=== PATIENT | male | born 1960 | race African-American/Black ===

== ENCOUNTER 2020-07-01 15:39 | Inpatient (IN) | payer MEDICARE ==
[~2020-07-01] VITALS: Ht 182.9 cm; Wt 89.8 kg
[2020-07-01 16:44] LABS: BASOPHILS % 0.3 % (0.0-2.0); EOSINOPHILS % 0.6 % (0.0-5.0); HEMATOCRIT. 35.3 % (42.0-52.0); LYMPHOCYTES % 20.3 % (20.0-50.0); MEAN CORPUSCULAR HEMOGLOBIN 27.5 pg (28.0-32.0); MEAN CORPUSCULAR VOLUME 80.8 fL (80.0-94.0); MEAN PLATELET VOLUME 8.3 fl (7.4-10.4); MONOCYTES % 7.7 % (2.0-8.0); NEUTROPHILS % 71.1 % (40.0-76.0); PLATELET 486 x1000/uL (130-400); RED BLOOD CELL COUNT 4.37 mill/uL (4.7-6.1); RED CELL DISTRIBUTION WIDTH 13.9 % (11.6-14.6)
[2020-07-01] MEDS ORDERED: SODIUM CHLORIDE 0.9% 1,000 ML IV ONE ×2 (16:45→18:30)
[2020-07-01 16:48] LABS: CHLORIDE 99 mEq/L (98-107)
[2020-07-01 16:52] LABS: INR 1.2; PROTHROMBIN TIME 12.8 sec (9.6-11.0)
[2020-07-01] MEDS ORDERED: ONDANSETRON HCL 4MG/2ML INJ IV STA (18:17)
[2020-07-01] MEDS ORDERED: MORPHINE SULFATE 4 MG/ML CPJ (NOT FOR IM USE) IV STA (18:17)
[2020-07-01 20:23] LABS: CLARITY URINE TURBID (CLEAR); COLOR URINE DK YELLOW (YELLOW); KETONES URINE NEGATIVE (NEGATIVE); LEUKOCYTE ESTERASE URINE 3+ (NEGATIVE); NITRITE URINE NEGATIVE (NEGATIVE); OCCULT BLOOD URINE 3+ (NEGATIVE); PH URINE 8.5 (4.5-8.0); PROTEIN URINE 2+ (NEGATIVE); SPECIFIC GRAVITY URINE 1.009 (1.005-1.030)
[2020-07-01 21:25] VITALS: BP 108/68
[2020-07-01] MEDS ORDERED: ACETAMINOPHEN 650MG/20.3ML UDC GT PRN (22:00)
[2020-07-01] MEDS ORDERED: CEFTRIAXONE 1 G PREMIX 50 ML IV ONE (22:00)
[2020-07-01] MEDS ORDERED: CLONIDINE 0.1MG TABLET PO PRN (22:00)
[2020-07-01] MEDS ORDERED: NA PHOS,M-B/NA PHOS,DI-BA ENEMA 118ML PR PRN (22:00)
[2020-07-01] MEDS ORDERED: ONDANSETRON HCL 4MG/2ML INJ IV PRN (22:00)
[2020-07-01] MEDS: SODIUM CHLORIDE 0.9% 1,000 ML IV SCH (22:00)
[2020-07-01] MEDS ORDERED: ACETAMINOPHEN 650MG SUPP PR PRN ×2 (22:00)
[2020-07-01] MEDS ORDERED: MAGNESIUM/ALUMINUM HYDROXIDE/SIMETHICONE 30ML UDC PO PRN (22:00)
[2020-07-01] MEDS ORDERED: GUAIFENESIN 200MG/10ML SUGAR FREE UDC PO PRN (22:00)
[2020-07-01] MEDS ORDERED: DOCUSATE SODIUM 100MG CAPSULE PO PRN (22:00)
[2020-07-01] MEDS ORDERED: HYDROCODONE/ACETAMINOPHEN 5/325MG TABLET PO PRN (22:00)
[2020-07-01] MEDS: PANTOPRAZOLE SODIUM 40 MG/VIAL IV SCH (23:39)
[2020-07-01] MEDS: CEFTRIAXONE 1,000 MG in DEXTROSE 5% WATER 50 ML IV SCH (23:39)
[2020-07-01] MEDS: ENOXAPARIN 40MG/0.4ML SYR SUBCUT SCH (23:45)
[2020-07-02] VITALS: BP 102/69
[2020-07-02] MEDS: ONDANSETRON HCL 4MG/2ML INJ IV PRN (00:17)
[2020-07-02] MEDS: METOCLOPRAMIDE HCL 10MG/2ML VIAL IV SCH ×2 (00:17→07:33)
[2020-07-02 04:00] VITALS: BP 109/61
[2020-07-02 05:49] LABS: CHLORIDE 106 mEq/L (98-107)
[2020-07-02 05:59] LABS: HDL CHOLESTEROL 18 mg/dL (40-59)
[2020-07-02 06:00] LABS: LDL CHOLESTEROL 71 mg/dL (5-100)
[2020-07-02] MEDS: SODIUM CHLORIDE 0.9% 1,000 ML IV SCH ×2 (06:00→14:27)
[2020-07-02 06:25] LABS: HEMOGLOBIN. 10.6 g/dL (14.0-18.0); MEAN CORPUSCULAR HEMOGLOBIN 27.8 pg (28.0-32.0); MEAN CORPUSCULAR VOLUME 83.7 fL (80.0-94.0); MEAN PLATELET VOLUME 8.4 fl (7.4-10.4); PLATELET 388 x1000/uL (130-400); RED BLOOD CELL COUNT 3.82 mill/uL (4.7-6.1); RED CELL DISTRIBUTION WIDTH 13.9 % (11.6-14.6)
[2020-07-02 08:00] VITALS: BP 102/73
[2020-07-02] MEDS: PANTOPRAZOLE SODIUM 40 MG/VIAL IV SCH (09:37)
[2020-07-02 10:30] LABS: PLATELET ESTIMATE NORMAL
[2020-07-02 12:00] VITALS: BP 105/74
[2020-07-02 16:00] VITALS: BP 115/72
[2020-07-02 20:00] VITALS: BP 95/68
[2020-07-02] MEDS: DIPHENOXYLATE/ATROPINE 2.5/0.025MG TABLET PO PRN (21:37)
[2020-07-02] MEDS: ENOXAPARIN 40MG/0.4ML SYR SUBCUT SCH (22:32)
[2020-07-02] MEDS: CEFTRIAXONE 1,000 MG in DEXTROSE 5% WATER 50 ML IV SCH (22:34)
[2020-07-03] VITALS: BP 103/62
[2020-07-03] MEDS: DIPHENOXYLATE/ATROPINE 2.5/0.025MG TABLET PO PRN ×2 (02:17→22:27)
[2020-07-03 04:00] VITALS: BP 106/65
[2020-07-03] MEDS ORDERED: POTASSIUM CHLORIDE 20MEQ TABLET SR PO SCH (06:00)
[2020-07-03] MEDS: SODIUM CHLORIDE 0.9% 1,000 ML IV SCH ×2 (06:15→14:00)
[2020-07-03 08:00] VITALS: BP 103/78
[2020-07-03] MEDS: PANTOPRAZOLE SODIUM 40 MG/VIAL IV SCH (09:00)
[2020-07-03 12:00] VITALS: BP 113/74
[2020-07-03 15:16] LABS: BASOPHILS % 0.5 % (0.0-2.0); EOSINOPHILS % 0.8 % (0.0-5.0); HEMATOCRIT. 31.7 % (42.0-52.0); HEMOGLOBIN. 10.4 g/dL (14.0-18.0); LYMPHOCYTES % 27.4 % (20.0-50.0); MEAN CORPUSCULAR HEMOGLOBIN 27.4 pg (28.0-32.0); MEAN CORPUSCULAR VOLUME 83.6 fL (80.0-94.0); MEAN PLATELET VOLUME 8.2 fl (7.4-10.4); MONOCYTES % 8.3 % (2.0-8.0); PLATELET 462 x1000/uL (130-400); RED BLOOD CELL COUNT 3.79 mill/uL (4.7-6.1); RED CELL DISTRIBUTION WIDTH 14.3 % (11.6-14.6)
[2020-07-03 15:23] LABS: CHLORIDE 107 mEq/L (98-107)
[2020-07-03 15:30] LABS: PHOSPHORUS 2.9 mg/dL (2.5-4.9)
[2020-07-03 16:00] VITALS: BP 107/76
[2020-07-03] MEDS ORDERED: DIPHENOXYLATE/ATROPINE 2.5/0.025MG TABLET PO NR (16:30)
[2020-07-03] MEDS: SODIUM BICARBONATE 50 MEQ in DEXTROSE 5% WATER 1,000 ML IV SCH (19:06)
[2020-07-03 20:00] VITALS: BP 116/78
[2020-07-03] MEDS: ENOXAPARIN 40MG/0.4ML SYR SUBCUT SCH (22:27)
[2020-07-03] MEDS: CEFTRIAXONE 1,000 MG in DEXTROSE 5% WATER 50 ML IV SCH (22:28)
[2020-07-03] MEDS: ONDANSETRON HCL 4MG/2ML INJ IV PRN (22:31)
[2020-07-04] VITALS: BP 107/74
[2020-07-04 04:00] VITALS: BP 111/73
[2020-07-04 08:00] VITALS: BP 111/76
[2020-07-04] MEDS: FAMOTIDINE 20MG TABLET PO SCH ×2 (09:49→21:05)
[2020-07-04 12:00] VITALS: BP 105/75
[2020-07-04] MEDS: SODIUM BICARBONATE 50 MEQ in DEXTROSE 5% WATER 1,000 ML IV SCH (14:37)
[2020-07-04] MEDS: DIPHENOXYLATE/ATROPINE 2.5/0.025MG TABLET PO PRN (14:37)
[2020-07-04] MEDS: ONDANSETRON HCL 4MG/2ML INJ IV PRN (14:37)
[2020-07-04 15:25] LABS: CLARITY URINE TURBID (CLEAR); COLOR URINE YELLOW (YELLOW); KETONES URINE NEGATIVE (NEGATIVE); LEUKOCYTE ESTERASE URINE 3+ (NEGATIVE); NITRITE URINE NEGATIVE (NEGATIVE); OCCULT BLOOD URINE 3+ (NEGATIVE); PH URINE 6.5 (4.5-8.0); PROTEIN URINE 2+ (NEGATIVE); UROBILINOGEN URINE 0.2 E.U./dL (0.2-1.0)
[2020-07-04 15:44] LABS: HEMATOCRIT 32.6 % (42.0-52.0); HEMOGLOBIN 10.8 g/dL (14.0-18.0); MEAN CORPUSCULAR HEMOGLOBIN 27.1 pg (28.0-32.0); MEAN CORPUSCULAR VOLUME 82.3 fL (80.0-94.0); PLATELET 456 x1000/uL (130-400); RED BLOOD CELL COUNT 3.97 mill/uL (4.7-6.1); RED CELL DISTRIBUTION WIDTH 14.2 % (11.6-14.6)
[2020-07-04 16:04] LABS: CHLORIDE 105 mEq/L (98-107)
[2020-07-04] MEDS ORDERED: POTASSIUM CHLORIDE 20MEQ TABLET SR PO NR (16:30)
[2020-07-04] MEDS: DIPHENOXYLATE/ATROPINE 2.5/0.025MG TABLET PO SCH (18:57)
[2020-07-04] MEDS: LEVOFLOXACIN 500MG PREMIX 100 ML IV SCH (18:57)
[2020-07-04 20:00] VITALS: BP 110/79
[2020-07-04] MEDS: ENOXAPARIN 40MG/0.4ML SYR SUBCUT SCH (23:03)
[2020-07-04] MEDS: TAMSULOSIN HCL 0.4MG SR CAPSULE PO SCH (23:14)
[2020-07-05] VITALS: BP 104/78
[2020-07-05] MEDS: DIPHENOXYLATE/ATROPINE 2.5/0.025MG TABLET PO SCH ×3 (03:00→16:38)
[2020-07-05 04:00] VITALS: BP 108/73
[2020-07-05] MEDS: SODIUM BICARBONATE 50 MEQ in DEXTROSE 5% WATER 1,000 ML IV SCH (05:00)
[2020-07-05 08:00] VITALS: BP 114/77
[2020-07-05] MEDS: TAMSULOSIN HCL 0.4MG SR CAPSULE PO SCH (09:00)
[2020-07-05] MEDS: FAMOTIDINE 20MG TABLET PO SCH ×2 (09:00→21:43)
[2020-07-05 09:20] LABS: *AMPHETAMINES SCREEN URINE NEGATIVE (NEGATIVE); *BARBITURATES SCREEN URINE NEGATIVE (NEGATIVE); *COCAINE SCREEN URINE NEGATIVE (NEGATIVE); CANNABINOID URINE SCREEN NEGATIVE (NEGATIVE); METHADONE URINE SCREEN NEGATIVE (NEGATIVE); OPIATES URINE SCREEN NEGATIVE (NEGATIVE); PHENCYCLIDINE URINE SCREEN NEGATIVE (NEGATIVE)
[2020-07-05 09:21] LABS: *BENZODIAZEPINES SCREEN URINE NEGATIVE (NEGATIVE)
[2020-07-05] MEDS ORDERED: EZ-HD SUSPENSION(BARIUM SULFATE 340GM) PO ONE (09:52)
[2020-07-05] MEDS ORDERED: BARIUM SULFATE 176 GM SUSP.RECON ONE (09:53)
[2020-07-05] MEDS ORDERED: SIMETHICONE/SOD BICARB/CIT AC 1 EACH GRAN.EF.PK ONE (09:54)
[2020-07-05 15:49] LABS: BASOPHILS % 0.3 % (0.0-2.0); EOSINOPHILS % 0.3 % (0.0-5.0); HEMATOCRIT. 32.1 % (42.0-52.0); HEMOGLOBIN. 10.6 g/dL (14.0-18.0); LYMPHOCYTES % 29.3 % (20.0-50.0); MEAN CORPUSCULAR HEMOGLOBIN 27.1 pg (28.0-32.0); MEAN CORPUSCULAR VOLUME 81.8 fL (80.0-94.0); MEAN PLATELET VOLUME 7.7 fl (7.4-10.4); MONOCYTES % 8.4 % (2.0-8.0); NEUTROPHILS % 61.7 % (40.0-76.0); PLATELET 425 x1000/uL (130-400); RED BLOOD CELL COUNT 3.92 mill/uL (4.7-6.1); RED CELL DISTRIBUTION WIDTH 13.9 % (11.6-14.6)
[2020-07-05 16:00] VITALS: BP 110/72
[2020-07-05 16:03] LABS: CHLORIDE 107 mEq/L (98-107)
[2020-07-05] MEDS: LEVOFLOXACIN 500MG PREMIX 100 ML IV SCH (17:36)
[2020-07-05] MEDS: METOCLOPRAMIDE HCL 10MG/2ML VIAL IV SCH (17:36)
[2020-07-05 20:00] VITALS: BP 112/65
[2020-07-06] VITALS: BP 120/79
[2020-07-06] MEDS: METOCLOPRAMIDE HCL 10MG/2ML VIAL IV SCH ×5 (00:50→23:36)
[2020-07-06] MEDS: ENOXAPARIN 40MG/0.4ML SYR SUBCUT SCH ×2 (00:51→22:36)
[2020-07-06] MEDS: SODIUM BICARBONATE 50 MEQ in DEXTROSE 5% WATER 1,000 ML IV SCH ×2 (00:52→21:10)
[2020-07-06] MEDS: DIPHENOXYLATE/ATROPINE 2.5/0.025MG TABLET PO SCH ×4 (00:54→23:50)
[2020-07-06 04:00] VITALS: BP 96/70
[2020-07-06 07:28] LABS: HEMATOCRIT. 28.7 % (42.0-52.0); HEMOGLOBIN. 9.5 g/dL (14.0-18.0); MEAN CORPUSCULAR HEMOGLOBIN 27.6 pg (28.0-32.0); MEAN CORPUSCULAR VOLUME 83.6 fL (80.0-94.0); MEAN PLATELET VOLUME 7.7 fl (7.4-10.4); PLATELET 418 x1000/uL (130-400); RED BLOOD CELL COUNT 3.44 mill/uL (4.7-6.1); RED CELL DISTRIBUTION WIDTH 13.9 % (11.6-14.6)
[2020-07-06 07:47] LABS: CHLORIDE 108 mEq/L (98-107)
[2020-07-06 07:51] LABS: AMYLASE 344 IU/L (25-115)
[2020-07-06 08:00] VITALS: BP 108/76
[2020-07-06] MEDS ORDERED: POTASSIUM CHLORIDE 20MEQ TABLET SR PO SCH (08:15)
[2020-07-06] MEDS: FAMOTIDINE 20MG TABLET PO SCH ×2 (08:57→21:00)
[2020-07-06] MEDS: TAMSULOSIN HCL 0.4MG SR CAPSULE PO SCH (08:57)
[2020-07-06] MEDS: ONDANSETRON HCL 4MG/2ML INJ IV PRN ×2 (09:04→09:05)
[2020-07-06 12:00] VITALS: BP 98/78
[2020-07-06 14:19] LABS: PLATELET ESTIMATE SLIGHTLY INCREASED
[2020-07-06 16:00] VITALS: BP 100/70
[2020-07-06] MEDS: LEVOFLOXACIN 500MG PREMIX 100 ML IV SCH (17:13)
[2020-07-06 20:00] VITALS: BP 108/73
[2020-07-06] MEDS ORDERED: MAGNESIUM 2 G PREMIX 50 ML IV NR (20:30)
[2020-07-07] VITALS: BP 102/73
[2020-07-07 04:00] VITALS: BP 109/70
[2020-07-07] MEDS: METOCLOPRAMIDE HCL 10MG/2ML VIAL IV SCH ×3 (05:37→18:28)
[2020-07-07 06:43] LABS: BASOPHILS % 0.4 % (0.0-2.0); EOSINOPHILS % 0.3 % (0.0-5.0); HEMATOCRIT. 29.3 % (42.0-52.0); HEMOGLOBIN. 9.9 g/dL (14.0-18.0); MEAN CORPUSCULAR HEMOGLOBIN 27.5 pg (28.0-32.0); MEAN CORPUSCULAR VOLUME 81.7 fL (80.0-94.0); MEAN PLATELET VOLUME 7.3 fl (7.4-10.4); MONOCYTES % 9.8 % (2.0-8.0); NEUTROPHILS % 59.5 % (40.0-76.0); PLATELET 404 x1000/uL (130-400); RED BLOOD CELL COUNT 3.59 mill/uL (4.7-6.1)
[2020-07-07 06:50] LABS: CHLORIDE 112 mEq/L (98-107)
[2020-07-07 06:54] LABS: AMYLASE 287 IU/L (25-115)
[2020-07-07 08:00] VITALS: BP 92/66
[2020-07-07] MEDS: ONDANSETRON HCL 4MG/2ML INJ IV PRN ×2 (08:42→23:11)
[2020-07-07] MEDS: DIPHENOXYLATE/ATROPINE 2.5/0.025MG TABLET PO SCH ×2 (08:42→16:46)
[2020-07-07] MEDS: FAMOTIDINE 20MG TABLET PO SCH ×2 (08:43→23:20)
[2020-07-07] MEDS: TAMSULOSIN HCL 0.4MG SR CAPSULE PO SCH (08:43)
[2020-07-07 12:00] VITALS: BP 104/70
[2020-07-07] MEDS: SODIUM BICARBONATE 50 MEQ in DEXTROSE 5% WATER 1,000 ML IV SCH (13:20)
[2020-07-07] MEDS: LEVOFLOXACIN 500MG PREMIX 100 ML IV SCH (18:28)
[2020-07-07 20:00] VITALS: BP 108/76
[2020-07-07] MEDS: ENOXAPARIN 40MG/0.4ML SYR SUBCUT SCH (23:21)
[2020-07-08] VITALS: BP 101/74
[2020-07-08] MEDS: DIPHENOXYLATE/ATROPINE 2.5/0.025MG TABLET PO SCH ×3 (01:08→16:11)
[2020-07-08 04:00] VITALS: BP 109/73
[2020-07-08] MEDS: SODIUM BICARBONATE 50 MEQ in DEXTROSE 5% WATER 1,000 ML IV SCH (04:41)
[2020-07-08] MEDS: METOCLOPRAMIDE HCL 10MG/2ML VIAL IV SCH ×4 (06:21→18:00)
[2020-07-08 07:16] LABS: BASOPHILS % 0.5 % (0.0-2.0); EOSINOPHILS % 0.4 % (0.0-5.0); HEMATOCRIT. 29.4 % (42.0-52.0); HEMOGLOBIN. 9.8 g/dL (14.0-18.0); LYMPHOCYTES % 29.5 % (20.0-50.0); MEAN CORPUSCULAR HEMOGLOBIN 27.1 pg (28.0-32.0); MEAN CORPUSCULAR VOLUME 80.8 fL (80.0-94.0); MEAN PLATELET VOLUME 7.5 fl (7.4-10.4); MONOCYTES % 10.2 % (2.0-8.0); NEUTROPHILS % 59.4 % (40.0-76.0); PLATELET 377 x1000/uL (130-400); RED BLOOD CELL COUNT 3.63 mill/uL (4.7-6.1); RED CELL DISTRIBUTION WIDTH 14.2 % (11.6-14.6)
[2020-07-08 07:25] LABS: CHLORIDE 110 mEq/L (98-107)
[2020-07-08 07:50] LABS: AMYLASE 247 IU/L (25-115)
[2020-07-08 08:00] VITALS: BP 104/73
[2020-07-08] MEDS: TAMSULOSIN HCL 0.4MG SR CAPSULE PO SCH (09:00)
[2020-07-08] MEDS: FAMOTIDINE 20MG TABLET PO SCH ×2 (09:00→21:00)
[2020-07-08] MEDS: ONDANSETRON HCL 4MG/2ML INJ IV PRN (09:19)
[2020-07-08 12:00] VITALS: BP 115/76
[2020-07-08] MEDS: LEVOFLOXACIN 500MG PREMIX 100 ML IV SCH (17:49)
[2020-07-08 20:00] VITALS: BP 106/69
[2020-07-08] MEDS: POTASSIUM CHLORIDE INJ 40 MEQ in DEXT 5% WATER 250 ML IV NR ×2 (20:00→21:44)
[2020-07-08] MEDS: ENOXAPARIN 40MG/0.4ML SYR SUBCUT SCH (22:30)
[2020-07-09] VITALS: BP 94/72
[2020-07-09] MEDS: DIPHENOXYLATE/ATROPINE 2.5/0.025MG TABLET PO SCH ×3 (00:04→17:54)
[2020-07-09] MEDS: FAMOTIDINE 20MG TABLET PO SCH ×3 (00:05→21:05)
[2020-07-09] MEDS: METOCLOPRAMIDE HCL 10MG/2ML VIAL IV SCH ×5 (00:27→21:42)
[2020-07-09 04:00] VITALS: BP 103/73
[2020-07-09 08:00] VITALS: BP 99/75
[2020-07-09] MEDS: TAMSULOSIN HCL 0.4MG SR CAPSULE PO SCH (09:10)
[2020-07-09 09:18] LABS: BASOPHILS % 0.5 % (0.0-2.0); EOSINOPHILS % 0.3 % (0.0-5.0); HEMATOCRIT. 28.4 % (42.0-52.0); HEMOGLOBIN. 9.6 g/dL (14.0-18.0); LYMPHOCYTES % 33.4 % (20.0-50.0); MEAN CORPUSCULAR HEMOGLOBIN 27.2 pg (28.0-32.0); MEAN CORPUSCULAR VOLUME 80.7 fL (80.0-94.0); MEAN PLATELET VOLUME 7.4 fl (7.4-10.4); MONOCYTES % 9.4 % (2.0-8.0); NEUTROPHILS % 56.4 % (40.0-76.0); PLATELET 382 x1000/uL (130-400); RED BLOOD CELL COUNT 3.52 mill/uL (4.7-6.1); RED CELL DISTRIBUTION WIDTH 14.3 % (11.6-14.6)
[2020-07-09 09:58] LABS: CHLORIDE 108 mEq/L (98-107)
[2020-07-09 10:06] LABS: AMYLASE 256 IU/L (25-115)
[2020-07-09 12:00] VITALS: BP 101/74
[2020-07-09] MEDS: SODIUM BICARBONATE 50 MEQ in DEXTROSE 5% WATER 1,000 ML IV SCH (14:29)
[2020-07-09 16:00] VITALS: BP 93/71
[2020-07-09] MEDS: NITROFURANTOIN 100MG M/M CAPSULE PO SCH (23:00)
[2020-07-09] MEDS: ENOXAPARIN 40MG/0.4ML SYR SUBCUT SCH (23:26)
[2020-07-10] VITALS: BP 101/71
[2020-07-10 04:00] VITALS: BP 101/71
[2020-07-10 05:09] LABS: CHLORIDE 105 mEq/L (98-107)
[2020-07-10 05:12] LABS: AMYLASE 261 IU/L (25-115)
[2020-07-10 05:26] LABS: BASOPHILS % 0.4 % (0.0-2.0); EOSINOPHILS % 0.4 % (0.0-5.0); HEMATOCRIT. 29.7 % (42.0-52.0); LYMPHOCYTES % 34.1 % (20.0-50.0); MEAN CORPUSCULAR HEMOGLOBIN 27.3 pg (28.0-32.0); MEAN CORPUSCULAR VOLUME 81.4 fL (80.0-94.0); MEAN PLATELET VOLUME 7.4 fl (7.4-10.4); MONOCYTES % 8.6 % (2.0-8.0); NEUTROPHILS % 56.5 % (40.0-76.0); PLATELET 343 x1000/uL (130-400); RED BLOOD CELL COUNT 3.65 mill/uL (4.7-6.1); RED CELL DISTRIBUTION WIDTH 14.6 % (11.6-14.6)
[2020-07-10] MEDS: METOCLOPRAMIDE HCL 10MG/2ML VIAL IV SCH ×4 (06:36→17:47)
[2020-07-10 08:00] VITALS: BP 109/65
[2020-07-10] MEDS: TAMSULOSIN HCL 0.4MG SR CAPSULE PO SCH (09:00)
[2020-07-10] MEDS: NITROFURANTOIN 100MG M/M CAPSULE PO SCH ×2 (09:00→21:00)
[2020-07-10] MEDS ORDERED: POTASSIUM CHLORIDE INJ 40 MEQ in DEXTROSE 5% WATER 1,000 ML IV ONE (09:00)
[2020-07-10] MEDS: FAMOTIDINE 20MG TABLET PO SCH ×2 (09:00→21:00)
[2020-07-10] MEDS ORDERED: DEXT 5% WATER + KCL 40MEQ/L 1,000 ML IV ONE (09:00)
[2020-07-10] MEDS: ONDANSETRON HCL 4MG/2ML INJ IV PRN (10:07)
[2020-07-10 12:00] VITALS: BP 97/69
[2020-07-10 16:00] VITALS: BP 97/73
[2020-07-10 20:00] VITALS: BP 113/81
[2020-07-10] MEDS: ENOXAPARIN 40MG/0.4ML SYR SUBCUT SCH (22:47)
[2020-07-11] VITALS: BP 115/77
[2020-07-11] MEDS: METOCLOPRAMIDE HCL 10MG/2ML VIAL IV SCH ×4 (00:21→18:13)
[2020-07-11 04:00] VITALS: BP 116/60
[2020-07-11 07:19] LABS: BASOPHILS % 0.3 % (0.0-2.0); EOSINOPHILS % 0.5 % (0.0-5.0); HEMOGLOBIN. 10.5 g/dL (14.0-18.0); LYMPHOCYTES % 34.4 % (20.0-50.0); MEAN CORPUSCULAR HEMOGLOBIN 27.8 pg (28.0-32.0); MEAN CORPUSCULAR VOLUME 82.4 fL (80.0-94.0); MEAN PLATELET VOLUME 7.9 fl (7.4-10.4); MONOCYTES % 8.7 % (2.0-8.0); NEUTROPHILS % 56.1 % (40.0-76.0); PLATELET 317 x1000/uL (130-400); RED BLOOD CELL COUNT 3.76 mill/uL (4.7-6.1); RED CELL DISTRIBUTION WIDTH 14.8 % (11.6-14.6)
[2020-07-11 08:00] VITALS: BP 110/70
[2020-07-11 08:01] LABS: CHLORIDE 105 mEq/L (98-107)
[2020-07-11 08:07] LABS: AMYLASE 320 IU/L (25-115)
[2020-07-11] MEDS: NITROFURANTOIN 100MG M/M CAPSULE PO SCH ×3 (09:00→21:54)
[2020-07-11] MEDS: TAMSULOSIN HCL 0.4MG SR CAPSULE PO SCH (09:00)
[2020-07-11] MEDS: FAMOTIDINE 20MG TABLET PO SCH ×3 (09:00→21:54)
[2020-07-11 20:00] VITALS: BP 101/79
[2020-07-11] MEDS: ENOXAPARIN 40MG/0.4ML SYR SUBCUT SCH (22:28)
[2020-07-12] VITALS: BP 122/81
[2020-07-12] MEDS: METOCLOPRAMIDE HCL 10MG/2ML VIAL IV SCH ×3 (00:23→11:21)
[2020-07-12 04:00] VITALS: BP 108/79
[2020-07-12 08:00] VITALS: BP 100/64
[2020-07-12] MEDS: NITROFURANTOIN 100MG M/M CAPSULE PO SCH (09:00)
[2020-07-12] MEDS: FAMOTIDINE 20MG TABLET PO SCH (09:00)
[2020-07-12] MEDS: TAMSULOSIN HCL 0.4MG SR CAPSULE PO SCH (09:00)
== END 2020-07-12 17:15 | DRG 438 ==
LOC: ER 15:39 → 6EST 18:42 → ENRESERV 20:37
PROVIDERS: ADMIT Family Medicine; ATTEND Family Medicine
DX: K85.90 Acute pancreatitis without necrosis or infection, unspecified (principal); N17.0 Acute kidney failure with tubular necrosis; E87.1 Hypo-osmolality and hyponatremia; E44.0 Moderate protein-calorie malnutrition; K56.7 Ileus, unspecified; N13.6 Pyonephrosis; E87.2 Acidosis; E86.0 Dehydration; D64.9 Anemia, unspecified; E87.6 Hypokalemia; E83.51 Hypocalcemia; K76.9 Liver disease, unspecified; K82.8 Other specified diseases of gallbladder; K21.9 Gastro-esophageal reflux disease without esophagitis; M16.12 Unilateral primary osteoarthritis, left hip; N18.9 Chronic kidney disease, unspecified; R13.10 Dysphagia, unspecified; Z96.642 Presence of left artificial hip joint; M19.90 Unspecified osteoarthritis, unspecified site; Z68.26 Body mass index [BMI] 26.0-26.9, adult; E87.5 Hyperkalemia; Z87.828 Personal history of other (healed) physical injury and trauma; E83.52 Hypercalcemia; R33.9 Retention of urine, unspecified; R19.7 Diarrhea, unspecified
CPT/HCPCS: 36415; 70360; 71045; 74018; 74176; 74249; 76700; 80048; 80053; 80061; 80305; 81003; 82150; 83735; 84100; 84484; 85025; 85027; 87015; 87045; 87077; 87186; 87427; 87449; 87493; 92610; 93005; 96365; 97110; 97162; 97530; 99291; C9113; J0696; J1650; J1956; J2270; J2405; J2765; J3475; J3480; J3490; J7030; J7040; J7060; J7070; J7517

== ENCOUNTER 2020-08-05 10:05 | Inpatient (IN) | payer MEDICARE, MEDICAID ==
[~2020-08-05] VITALS: Ht 182.9 cm; Wt 89.8 kg
[2020-08-05] MEDS ORDERED: VANCOMYCIN 1 G PREMIX 200 ML IV ONE ×2 (10:45→12:15)
[2020-08-05] MEDS ORDERED: PIPERACILLIN/TAZ 3.375G PREMIX 50 ML IV ONE ×2 (10:45→12:15)
[2020-08-05 12:13] LABS: BASOPHILS % 0.2 % (0.0-2.0); EOSINOPHILS % 0.1 % (0.0-5.0); HEMATOCRIT. 43.1 % (42.0-52.0); HEMOGLOBIN. 13.6 g/dL (14.0-18.0); LYMPHOCYTES % 27.1 % (20.0-50.0); MEAN CORPUSCULAR HEMOGLOBIN 27.9 pg (28.0-32.0); MEAN CORPUSCULAR VOLUME 88.2 fL (80.0-94.0); MEAN PLATELET VOLUME 10.9 fl (7.4-10.4); MONOCYTES % 7.7 % (2.0-8.0); NEUTROPHILS % 64.9 % (40.0-76.0); PLATELET 100 x1000/uL (130-400); RED BLOOD CELL COUNT 4.89 mill/uL (4.7-6.1); RED CELL DISTRIBUTION WIDTH 21.2 % (11.6-14.6)
[2020-08-05] MEDS ORDERED: SODIUM CHLORIDE 0.9% 1,000 ML IV ONE ×2 (12:15→15:00)
[2020-08-05 12:23] LABS: CHLORIDE 117 mEq/L (98-107)
[2020-08-05 12:31] LABS: ETHANOL BLOOD < 10 mg/dL
[2020-08-05 12:33] LABS: CREATINE KINASE 75 IU/L (39-308)
[2020-08-05 14:43] LABS: CLARITY URINE TURBID (CLEAR); COLOR URINE DARK YELLOW (YELLOW); KETONES URINE TRACE (NEGATIVE); LEUKOCYTE ESTERASE URINE 3+ (NEGATIVE); NITRITE URINE NEGATIVE (NEGATIVE); OCCULT BLOOD URINE 3+ (NEGATIVE); PROTEIN URINE 3+ (NEGATIVE); SPECIFIC GRAVITY URINE 1.018 (1.005-1.030)
[2020-08-05 14:59] LABS: *AMPHETAMINES SCREEN URINE PRESUMTIVE POSITIVE (NEGATIVE); *BARBITURATES SCREEN URINE NEGATIVE (NEGATIVE); *BENZODIAZEPINES SCREEN URINE NEGATIVE (NEGATIVE); *COCAINE SCREEN URINE NEGATIVE (NEGATIVE); METHADONE URINE SCREEN NEGATIVE (NEGATIVE)
[2020-08-05 15:00] LABS: CANNABINOID URINE SCREEN NEGATIVE (NEGATIVE); OPIATES URINE SCREEN NEGATIVE (NEGATIVE); PHENCYCLIDINE URINE SCREEN NEGATIVE (NEGATIVE)
[2020-08-05 19:14] VITALS: BP 113/33
[2020-08-05] MEDS ORDERED: DEXTROSE 5% WATER 1,000 ML IV SCH (19:15)
[2020-08-05] MEDS ORDERED: ENOXAPARIN 40MG/0.4ML SYR SUBCUT SCH (19:15)
[2020-08-05] MEDS ORDERED: ONDANSETRON HCL 4MG/2ML INJ IV PRN (19:15)
[2020-08-05] MEDS ORDERED: CEFTRIAXONE 1 G PREMIX 50 ML IV SCH (19:15)
[2020-08-05] MEDS ORDERED: DIPHENHYDRAMINE 50MG/ML VIAL IV PRN (19:15)
[2020-08-05] MEDS ORDERED: ACETAMINOPHEN 650MG/20.3ML UDC GT PRN (19:15)
[2020-08-05] MEDS ORDERED: MAGNESIUM/ALUMINUM HYDROXIDE/SIMETHICONE 30ML UDC PO PRN (19:15)
[2020-08-05] MEDS ORDERED: ACETAMINOPHEN 650MG SUPP PR PRN (19:15)
[2020-08-05 20:00] VITALS: BP 85/64
[2020-08-05] MEDS: ENOXAPARIN 30MG/0.3ML SYR SUBCUT SCH (20:00)
[2020-08-05] MEDS: CEFTRIAXONE 1,000 MG in DEXTROSE 5% WATER 50 ML IV SCH (20:58)
[2020-08-05] MEDS: SODIUM BICARBONATE 100 MEQ in DEXTROSE 5% WATER 1,000 ML IV SCH (20:59)
[2020-08-05] MEDS ORDERED: SODIUM BICARBONATE 150 MEQ in DEXTROSE 5% WATER 1,000 ML IV SCH (21:00)
[2020-08-05 22:00] VITALS: BP 95/55
[2020-08-05 22:41] VITALS: BP 113/33
[2020-08-05] MEDS ORDERED: CHOL400D7 MT (23:06)
[2020-08-05] MEDS ORDERED: CALC-1042 PO (23:06)
[2020-08-06] VITALS (12 sets, daily range): BP systolic 84–134; BP diastolic 47–72
[2020-08-06] LABS: AMYLASE 123 IU/L (25-115)
[2020-08-06 00:07] LABS: CREATINE KINASE 185 IU/L (39-308); CREATINE KINASE MB FRACTION 1.1 ng/mL (0.5-3.6); T4 FREE 0.93 ng/dL (0.76-1.46)
[2020-08-06] MEDS: SODIUM BICARBONATE 100 MEQ in DEXTROSE 5% WATER 1,000 ML IV SCH (04:15)
[2020-08-06 07:20] LABS: CHLORIDE 120 mEq/L (98-107)
[2020-08-06 07:30] LABS: HDL CHOLESTEROL 23 mg/dL (40-59)
[2020-08-06 07:32] LABS: LDL CHOLESTEROL 93 mg/dL (5-100); PHOSPHORUS 2.7 mg/dL (2.5-4.9)
[2020-08-06 07:34] LABS: CREATINE KINASE 179 IU/L (39-308)
[2020-08-06] MEDS ORDERED: SODIUM CHLORIDE 0.45% 1,000 ML IV ONE (08:15)
[2020-08-06] MEDS: DEXT 5%/0.2% NACL KCL 20MEQ/L 1,000 ML IV SCH ×2 (08:32→16:28)
[2020-08-06] MEDS: PANTOPRAZOLE SODIUM 40 MG/VIAL IV SCH (10:50)
[2020-08-06] MEDS: ENOXAPARIN 30MG/0.3ML SYR SUBCUT SCH (20:00)
[2020-08-06 21:00] LABS: BASOPHILS % 0.4 % (0.0-2.0); EOSINOPHILS % 0.5 % (0.0-5.0); HEMATOCRIT. 37.2 % (42.0-52.0); HEMOGLOBIN. 12.3 g/dL (14.0-18.0); LYMPHOCYTES % 22.5 % (20.0-50.0); MEAN CORPUSCULAR HEMOGLOBIN 28.8 pg (28.0-32.0); MEAN CORPUSCULAR VOLUME 87.2 fL (80.0-94.0); MEAN PLATELET VOLUME 10.4 fl (7.4-10.4); MONOCYTES % 6.4 % (2.0-8.0); NEUTROPHILS % 70.2 % (40.0-76.0); PLATELET 54 x1000/uL (130-400); RED BLOOD CELL COUNT 4.26 mill/uL (4.7-6.1); RED CELL DISTRIBUTION WIDTH 20.6 % (11.6-14.6)
[2020-08-06] MEDS: CEFTRIAXONE 1,000 MG in DEXTROSE 5% WATER 50 ML IV SCH (21:37)
[2020-08-07] VITALS (12 sets, daily range): BP systolic 94–115; BP diastolic 59–84
[2020-08-07] MEDS: DEXT 5%/0.2% NACL KCL 20MEQ/L 1,000 ML IV SCH (01:00)
[2020-08-07 06:00] LABS: BASOPHILS % 0.5 % (0.0-2.0); EOSINOPHILS % 0.2 % (0.0-5.0); HEMATOCRIT. 35.7 % (42.0-52.0); HEMOGLOBIN. 11.8 g/dL (14.0-18.0); LYMPHOCYTES % 18.6 % (20.0-50.0); MEAN CORPUSCULAR HEMOGLOBIN 28.7 pg (28.0-32.0); MEAN CORPUSCULAR VOLUME 86.8 fL (80.0-94.0); MEAN PLATELET VOLUME 9.9 fl (7.4-10.4); MONOCYTES % 5.4 % (2.0-8.0); NEUTROPHILS % 75.3 % (40.0-76.0); PLATELET 77 x1000/uL (130-400); RED BLOOD CELL COUNT 4.11 mill/uL (4.7-6.1); RED CELL DISTRIBUTION WIDTH 20.3 % (11.6-14.6)
[2020-08-07 06:16] LABS: CHLORIDE 117 mEq/L (98-107)
[2020-08-07 06:24] LABS: PHOSPHORUS 1.9 mg/dL (2.5-4.9)
[2020-08-07] MEDS ORDERED: KCL 20MEQ/100ML PREMIX 100 ML IV ONE (07:45)
[2020-08-07] MEDS ORDERED: POTASSIUM PHOS,M-BASIC-D-BASIC 30 MMOL in DEXT 5% WATER 500 ML IV ONE (08:15)
[2020-08-07] MEDS: PANTOPRAZOLE SODIUM 40 MG/VIAL IV SCH (09:33)
[2020-08-07] MEDS: POTASSIUM CHLORIDE INJ 30 MEQ, SODIUM BICARBONATE 50 MEQ in DEXTROSE 5% WATER 1,000 ML IV SCH (11:09)
[2020-08-07] MEDS: CEFTRIAXONE 1,000 MG in DEXTROSE 5% WATER 50 ML IV SCH (21:00)
[2020-08-08] VITALS (12 sets, daily range): BP systolic 95–119; BP diastolic 48–87
[2020-08-08] MEDS: POTASSIUM CHLORIDE INJ 30 MEQ, SODIUM BICARBONATE 50 MEQ in DEXTROSE 5% WATER 1,000 ML IV SCH ×5 (02:33→21:49)
[2020-08-08 09:12] LABS: BASOPHILS % 0.3 % (0.0-2.0); EOSINOPHILS % 0.3 % (0.0-5.0); HEMATOCRIT. 36.9 % (42.0-52.0); HEMOGLOBIN. 12.2 g/dL (14.0-18.0); LYMPHOCYTES % 13.9 % (20.0-50.0); MEAN CORPUSCULAR HEMOGLOBIN 28.3 pg (28.0-32.0); MEAN CORPUSCULAR VOLUME 85.9 fL (80.0-94.0); MEAN PLATELET VOLUME 10.7 fl (7.4-10.4); MONOCYTES % 9.8 % (2.0-8.0); NEUTROPHILS % 75.7 % (40.0-76.0); PLATELET 57 x1000/uL (130-400); RED CELL DISTRIBUTION WIDTH 20.5 % (11.6-14.6)
[2020-08-08] MEDS: PANTOPRAZOLE SODIUM 40 MG/VIAL IV SCH (09:28)
[2020-08-08 09:32] LABS: PHOSPHORUS 2.3 mg/dL (2.5-4.9)
[2020-08-08] MEDS ORDERED: POTASSIUM PHOS,M-BASIC-D-BASIC 15 MMOL in DEXT 5% WATER 245 ML IV NR (15:00)
[2020-08-08] MEDS: CEFTRIAXONE 1,000 MG in DEXTROSE 5% WATER 50 ML IV SCH (20:09)
[2020-08-09] VITALS (14 sets, daily range): BP systolic 84–126; BP diastolic 46–90
[2020-08-09] MEDS: POTASSIUM CHLORIDE INJ 30 MEQ, SODIUM BICARBONATE 50 MEQ in DEXTROSE 5% WATER 1,000 ML IV SCH (04:40)
[2020-08-09 05:34] LABS: PHOSPHORUS 3.9 mg/dL (2.5-4.9)
[2020-08-09] MEDS: PANTOPRAZOLE SODIUM 40 MG/VIAL IV SCH (08:39)
[2020-08-09 09:14] LABS: BASOPHILS % 0.2 % (0.0-2.0); EOSINOPHILS % 0.2 % (0.0-5.0); HEMATOCRIT. 35.7 % (42.0-52.0); HEMOGLOBIN. 11.8 g/dL (14.0-18.0); LYMPHOCYTES % 23.3 % (20.0-50.0); MEAN CORPUSCULAR HEMOGLOBIN 28.2 pg (28.0-32.0); MEAN CORPUSCULAR VOLUME 85.1 fL (80.0-94.0); MEAN PLATELET VOLUME 11.1 fl (7.4-10.4); MONOCYTES % 9.1 % (2.0-8.0); NEUTROPHILS % 67.2 % (40.0-76.0); RED CELL DISTRIBUTION WIDTH 20.5 % (11.6-14.6)
[2020-08-09 09:39] LABS: PLATELET 48 x1000/uL (130-400)
[2020-08-09 10:35] LABS: PLATELET ESTIMATE MARKEDLY DECREASED
[2020-08-09] MEDS: WATER IV SCH ×2 (11:13→20:30)
[2020-08-09] MEDS: POTASSIUM ACETATE IV SCH ×2 (11:13→20:30)
[2020-08-09] MEDS: DEXTROSE 5% IV SCH ×2 (11:13→20:30)
[2020-08-09] MEDS: THIAMINE HCL 100MG TABLET PO SCH ×2 (12:58→18:07)
[2020-08-09] MEDS: CEFTRIAXONE 1,000 MG in DEXTROSE 5% WATER 50 ML IV SCH (20:31)
[2020-08-09] MEDS: TAMSULOSIN HCL 0.4MG SR CAPSULE PO SCH (20:42)
[2020-08-09] MEDS ORDERED: SODIUM CHLORIDE 0.9% 250 ML IV ONE (23:30)
[2020-08-10] VITALS (12 sets, daily range): BP systolic 76–128; BP diastolic 31–76
[2020-08-10 06:07] LABS: BASOPHILS % 0.4 % (0.0-2.0); EOSINOPHILS % 0.2 % (0.0-5.0); HEMATOCRIT. 35.8 % (42.0-52.0); HEMOGLOBIN. 11.6 g/dL (14.0-18.0); LYMPHOCYTES % 27.3 % (20.0-50.0); MEAN CORPUSCULAR HEMOGLOBIN 28.1 pg (28.0-32.0); MEAN CORPUSCULAR VOLUME 86.7 fL (80.0-94.0); MEAN PLATELET VOLUME 11.4 fl (7.4-10.4); MONOCYTES % 10.7 % (2.0-8.0); NEUTROPHILS % 61.4 % (40.0-76.0); PLATELET 55 x1000/uL (130-400); RED BLOOD CELL COUNT 4.12 mill/uL (4.7-6.1); RED CELL DISTRIBUTION WIDTH 20.6 % (11.6-14.6)
[2020-08-10 06:15] LABS: PHOSPHORUS 3.5 mg/dL (2.5-4.9)
[2020-08-10] MEDS: PANTOPRAZOLE SODIUM 40 MG/VIAL IV SCH (08:11)
[2020-08-10] MEDS: THIAMINE HCL 100MG TABLET PO SCH ×2 (08:12→18:01)
[2020-08-10] MEDS: DEXTROSE 5% IV SCH ×2 (11:19→11:20)
[2020-08-10] MEDS: WATER IV SCH ×2 (11:19→11:20)
[2020-08-10] MEDS: POTASSIUM ACETATE IV SCH ×2 (11:19→11:20)
[2020-08-10] MEDS: DEXTROSE 5% WATER 1,000 ML IV SCH (11:53)
[2020-08-10] MEDS ORDERED: MAGNESIUM 2 G PREMIX 50 ML IV NR (13:00)
[2020-08-10] MEDS ORDERED: CALCIUM GLUCONATE 1GM PREMIX 50 ML IV NR (13:00)
[2020-08-10] MEDS ORDERED: THIAMINE HCL 100MG TABLET PO SCH (17:30)
[2020-08-10 19:25] LABS: CLARITY URINE TURBID (CLEAR); COLOR URINE YELLOW (YELLOW); KETONES URINE NEGATIVE (NEGATIVE); LEUKOCYTE ESTERASE URINE 3+ (NEGATIVE); NITRITE URINE NEGATIVE (NEGATIVE); OCCULT BLOOD URINE 3+ (NEGATIVE); PROTEIN URINE 1+ (NEGATIVE); SPECIFIC GRAVITY URINE 1.013 (1.005-1.030)
[2020-08-10 19:45] LABS: *AMPHETAMINES SCREEN URINE NEGATIVE (NEGATIVE)
[2020-08-10 19:46] LABS: *BARBITURATES SCREEN URINE NEGATIVE (NEGATIVE); *BENZODIAZEPINES SCREEN URINE NEGATIVE (NEGATIVE); *COCAINE SCREEN URINE NEGATIVE (NEGATIVE); METHADONE URINE SCREEN NEGATIVE (NEGATIVE); OPIATES URINE SCREEN NEGATIVE (NEGATIVE); PHENCYCLIDINE URINE SCREEN NEGATIVE (NEGATIVE)
[2020-08-10 19:47] LABS: CANNABINOID URINE SCREEN NEGATIVE (NEGATIVE)
[2020-08-10] MEDS: CEFTRIAXONE 1,000 MG in DEXTROSE 5% WATER 50 ML IV SCH (20:13)
[2020-08-10] MEDS: TAMSULOSIN HCL 0.4MG SR CAPSULE PO SCH (20:41)
[2020-08-11] VITALS (12 sets, daily range): BP systolic 101–129; BP diastolic 61–99
[2020-08-11] MEDS: DEXTROSE 5% WATER 1,000 ML IV SCH ×2 (01:44→14:19)
[2020-08-11 07:59] LABS: BASOPHILS % 0.3 % (0.0-2.0); EOSINOPHILS % 0.3 % (0.0-5.0); HEMATOCRIT. 32.2 % (42.0-52.0); HEMOGLOBIN. 10.6 g/dL (14.0-18.0); LYMPHOCYTES % 17.5 % (20.0-50.0); MEAN CORPUSCULAR HEMOGLOBIN 27.8 pg (28.0-32.0); MEAN CORPUSCULAR VOLUME 84.6 fL (80.0-94.0); MEAN PLATELET VOLUME 11.3 fl (7.4-10.4); MONOCYTES % 5.6 % (2.0-8.0); NEUTROPHILS % 76.3 % (40.0-76.0); PLATELET 61 x1000/uL (130-400); RED BLOOD CELL COUNT 3.81 mill/uL (4.7-6.1); RED CELL DISTRIBUTION WIDTH 20.2 % (11.6-14.6)
[2020-08-11] MEDS: PANTOPRAZOLE SODIUM 40 MG/VIAL IV SCH (08:31)
[2020-08-11] MEDS: THIAMINE HCL 100MG TABLET PO SCH (08:31)
[2020-08-11] MEDS ORDERED: POTASSIUM CHLORIDE INJ 40 MEQ in DEXT 5% WATER 250 ML IV SCH (14:00)
[2020-08-11] MEDS: LACTULOSE 20G/30ML UDC NG SCH ×2 (14:19→22:10)
[2020-08-11] MEDS: TAMSULOSIN HCL 0.4MG SR CAPSULE PO SCH (20:10)
[2020-08-11] MEDS: CEFTRIAXONE 1,000 MG in DEXTROSE 5% WATER 50 ML IV SCH (20:10)
[2020-08-12] VITALS (7 sets, daily range): BP systolic 90–102; BP diastolic 57–78
[2020-08-12] MEDS: DEXTROSE 5% WATER 1,000 ML IV SCH ×3 (05:42→20:48)
[2020-08-12 06:46] LABS: BASOPHILS % 0.3 % (0.0-2.0); EOSINOPHILS % 0.3 % (0.0-5.0); HEMATOCRIT. 30.8 % (42.0-52.0); HEMOGLOBIN. 10.2 g/dL (14.0-18.0); INR 1.1; LYMPHOCYTES % 21.3 % (20.0-50.0); MEAN CORPUSCULAR HEMOGLOBIN 28.2 pg (28.0-32.0); MEAN CORPUSCULAR VOLUME 85.1 fL (80.0-94.0); MEAN PLATELET VOLUME 11.6 fl (7.4-10.4); MONOCYTES % 5.6 % (2.0-8.0); NEUTROPHILS % 72.5 % (40.0-76.0); PLATELET 60 x1000/uL (130-400); PROTHROMBIN TIME 11.7 sec (9.6-11.0); RED BLOOD CELL COUNT 3.63 mill/uL (4.7-6.1)
[2020-08-12 06:55] LABS: PHOSPHORUS 3.1 mg/dL (2.5-4.9)
[2020-08-12] MEDS ORDERED: CALCIUM GLUCONATE 1GM PREMIX 50 ML IV SCH (07:30)
[2020-08-12] MEDS: LACTULOSE 20G/30ML UDC NG SCH ×2 (09:00→20:48)
[2020-08-12] MEDS: THIAMINE HCL 100MG TABLET PO SCH (09:00)
[2020-08-12] MEDS ORDERED: SODIUM CHLORIDE 0.9% 500 ML IV ONE ×2 (09:11→11:15)
[2020-08-12] MEDS: PANTOPRAZOLE SODIUM 40 MG/VIAL IV SCH (09:24)
[2020-08-12] MEDS ORDERED: ALBUMIN HUMAN 12.5GM/50ML (25%) IV ONE (09:45)
[2020-08-12] MEDS ORDERED: ALBUMIN HUMAN 25GM/500ML (5%) IV NR (09:45)
[2020-08-12] MEDS ORDERED: POTASSIUM CHLORIDE INJ 40 MEQ in DEXT 5% WATER 250 ML IV SCH (11:00)
[2020-08-12] MEDS ORDERED: QUETIAPINE FUMARATE 25MG TABLET PO SCH (13:00)
[2020-08-12] MEDS: TAMSULOSIN HCL 0.4MG SR CAPSULE PO SCH (20:48)
[2020-08-12] MEDS: CALCIUM GLUCONATE 1,000 MG in DEXT 5% WATER 90 ML IV SCH (22:38)
[2020-08-13 00:10] VITALS: BP 101/71
[2020-08-13 04:00] VITALS: BP 103/85
[2020-08-13 08:00] VITALS: BP 99/76
[2020-08-13] MEDS: THIAMINE HCL 100MG TABLET PO SCH (08:04)
[2020-08-13] MEDS: LACTULOSE 20G/30ML UDC NG SCH ×3 (08:04→22:09)
[2020-08-13] MEDS: CALCIUM GLUCONATE 1,000 MG in DEXT 5% WATER 90 ML IV SCH (09:21)
[2020-08-13] MEDS: PANTOPRAZOLE SODIUM 40 MG/VIAL IV SCH (09:21)
[2020-08-13 10:12] LABS: BASOPHILS % 0.3 % (0.0-2.0); EOSINOPHILS % 0.4 % (0.0-5.0); HEMATOCRIT. 33.6 % (42.0-52.0); LYMPHOCYTES % 18.9 % (20.0-50.0); MEAN CORPUSCULAR VOLUME 85.8 fL (80.0-94.0); MEAN PLATELET VOLUME 10.9 fl (7.4-10.4); MONOCYTES % 4.9 % (2.0-8.0); NEUTROPHILS % 75.5 % (40.0-76.0); PLATELET 83 x1000/uL (130-400); RED BLOOD CELL COUNT 3.92 mill/uL (4.7-6.1); RED CELL DISTRIBUTION WIDTH 21.2 % (11.6-14.6)
[2020-08-13 10:33] LABS: PHOSPHORUS 3.4 mg/dL (2.5-4.9)
[2020-08-13] MEDS: CALCITRIOL 1MCG/ML AMP IV SCH (11:18)
[2020-08-13] MEDS: POTASSIUM CHLORIDE INJ 40 MEQ in DEXTROSE 5% WATER 1,000 ML IV SCH (11:18)
[2020-08-13] MEDS ORDERED: DEXT 5% WATER + KCL 40MEQ/L 1,000 ML IV SCH (11:30)
[2020-08-13 12:00] VITALS: BP 98/68
[2020-08-13] MEDS ORDERED: CALCIUM GLUCONATE 1GM PREMIX 50 ML IV SCH (12:00)
[2020-08-13 16:00] VITALS: BP 106/72
[2020-08-13 20:00] VITALS: BP 99/70
[2020-08-13] MEDS ORDERED: CALCIUM GLUCONATE 1,000 MG in DEXT 5% WATER 90 ML IV SCH (21:00)
[2020-08-13] MEDS: TAMSULOSIN HCL 0.4MG SR CAPSULE PO SCH ×2 (21:00→22:09)
[2020-08-14] VITALS: BP 123/85
[2020-08-14] MEDS: CALCIUM GLUCONATE 1GM PREMIX 50 ML IV SCH ×3 (00:04→23:39)
[2020-08-14] MEDS: POTASSIUM CHLORIDE INJ 40 MEQ in DEXTROSE 5% WATER 1,000 ML IV SCH (01:22)
[2020-08-14 04:00] VITALS: BP 113/71
[2020-08-14 08:00] VITALS: BP 106/53
[2020-08-14] MEDS: THIAMINE HCL 100MG TABLET PO SCH (09:49)
[2020-08-14] MEDS: CALCITRIOL 1MCG/ML AMP IV SCH (09:49)
[2020-08-14] MEDS: PANTOPRAZOLE SODIUM 40 MG/VIAL IV SCH (09:49)
[2020-08-14] MEDS: LACTULOSE 20G/30ML UDC NG SCH ×3 (09:49→21:00)
[2020-08-14 10:17] LABS: BASOPHILS % 0.3 % (0.0-2.0); EOSINOPHILS % 0.3 % (0.0-5.0); HEMATOCRIT. 30.8 % (42.0-52.0); HEMOGLOBIN. 10.1 g/dL (14.0-18.0); LYMPHOCYTES % 16.4 % (20.0-50.0); MEAN CORPUSCULAR HEMOGLOBIN 28.4 pg (28.0-32.0); MEAN CORPUSCULAR VOLUME 86.4 fL (80.0-94.0); MONOCYTES % 5.3 % (2.0-8.0); NEUTROPHILS % 77.7 % (40.0-76.0); PLATELET 87 x1000/uL (130-400); RED BLOOD CELL COUNT 3.57 mill/uL (4.7-6.1); RED CELL DISTRIBUTION WIDTH 21.3 % (11.6-14.6)
[2020-08-14 10:34] LABS: PHOSPHORUS 2.4 mg/dL (2.5-4.9)
[2020-08-14 12:00] VITALS: BP 104/50
[2020-08-14] MEDS ORDERED: POTASSIUM CHLORIDE INJ 40 MEQ in DEXT 5% WATER 250 ML IV SCH (12:00)
[2020-08-14] MEDS ORDERED: POTASSIUM PHOS,M-BASIC-D-BASIC 15 MMOL in DEXT 5% WATER 245 ML IV SCH (12:00)
[2020-08-14] MEDS: METOCLOPRAMIDE HCL 10MG/2ML VIAL IV SCH ×2 (13:04→17:46)
[2020-08-14 16:00] VITALS: BP 122/60
[2020-08-14] MEDS ORDERED: KCL 20MEQ/100ML PREMIX 100 ML IV NR (17:00)
[2020-08-14 20:00] VITALS: BP 125/91
[2020-08-14] MEDS: TAMSULOSIN HCL 0.4MG SR CAPSULE PO SCH ×2 (20:18→21:00)
[2020-08-15] VITALS: BP 99/74
[2020-08-15] MEDS: METOCLOPRAMIDE HCL 10MG/2ML VIAL IV SCH ×5 (00:41→23:16)
[2020-08-15 04:00] VITALS: BP 102/55
[2020-08-15 06:08] LABS: BASOPHILS % 0.3 % (0.0-2.0); EOSINOPHILS % 0.6 % (0.0-5.0); HEMATOCRIT. 32.3 % (42.0-52.0); HEMOGLOBIN. 10.5 g/dL (14.0-18.0); LYMPHOCYTES % 24.6 % (20.0-50.0); MEAN CORPUSCULAR HEMOGLOBIN 28.3 pg (28.0-32.0); MEAN CORPUSCULAR VOLUME 87.5 fL (80.0-94.0); MEAN PLATELET VOLUME 11.9 fl (7.4-10.4); MONOCYTES % 7.8 % (2.0-8.0); NEUTROPHILS % 66.7 % (40.0-76.0); PLATELET 121 x1000/uL (130-400); RED BLOOD CELL COUNT 3.69 mill/uL (4.7-6.1)
[2020-08-15 06:15] LABS: INR 1.1; PROTHROMBIN TIME 11.5 sec (9.6-11.0)
[2020-08-15 06:16] LABS: PHOSPHORUS 3.3 mg/dL (2.5-4.9)
[2020-08-15 08:00] VITALS: BP 113/95
[2020-08-15] MEDS: POTASSIUM CHLORIDE INJ 40 MEQ in DEXTROSE 5% WATER 1,000 ML IV SCH (08:07)
[2020-08-15] MEDS: LACTULOSE 20G/30ML UDC NG SCH ×2 (08:15→21:51)
[2020-08-15] MEDS: THIAMINE HCL 100MG TABLET PO SCH (08:16)
[2020-08-15] MEDS: PANTOPRAZOLE SODIUM 40 MG/VIAL IV SCH (08:26)
[2020-08-15] MEDS: CALCITRIOL 1MCG/ML AMP IV SCH (08:26)
[2020-08-15 09:09] LABS: IMMUNOGLOBULIN A 436 mg/dL (90-386); IMMUNOGLOBULIN G 2179 mg/dL (603-1613); IMMUNOGLOBULIN M 145 mg/dL (20-172)
[2020-08-15] MEDS ORDERED: KCL 20MEQ/100ML PREMIX 100 ML IV NR ×2 (09:30→13:30)
[2020-08-15] MEDS: CALCIUM GLUCONATE 1GM PREMIX 50 ML IV SCH ×2 (10:01→23:16)
[2020-08-15 12:00] VITALS: BP 100/80
[2020-08-15 16:00] VITALS: BP 95/65
[2020-08-15] MEDS ORDERED: MIDAZOLAM HCL 5 MG/5 ML VIAL ONE (17:46)
[2020-08-15] MEDS ORDERED: FENTANYL CITRATE/PF 50MCG/ML 2ML VIAL ONE (17:46)
[2020-08-15] MEDS ORDERED: MIDAZOLAM HCL 2 MG/2 ML VIAL IV PRN (17:58)
[2020-08-15] MEDS ORDERED: FENTANYL CITRATE/PF 50MCG/ML 2ML VIAL IV PRN (18:01)
[2020-08-15] MEDS ORDERED: CEFAZOLIN 1000MG PREMIX 50 ML IV ONE (18:45)
[2020-08-15 20:00] VITALS: BP 99/71
[2020-08-15] MEDS: TAMSULOSIN HCL 0.4MG SR CAPSULE PO SCH (21:52)
[2020-08-16] VITALS: BP 101/61
[2020-08-16 04:00] VITALS: BP 101/74
[2020-08-16] MEDS: METOCLOPRAMIDE HCL 10MG/2ML VIAL IV SCH ×3 (05:48→17:10)
[2020-08-16 07:59] LABS: PHOSPHORUS 2.9 mg/dL (2.5-4.9)
[2020-08-16 08:00] VITALS: BP 98/69
[2020-08-16 09:09] LABS: BASOPHILS % 0.3 % (0.0-2.0); EOSINOPHILS % 0.3 % (0.0-5.0); HEMATOCRIT. 31.3 % (42.0-52.0); HEMOGLOBIN. 9.9 g/dL (14.0-18.0); LYMPHOCYTES % 19.8 % (20.0-50.0); MEAN CORPUSCULAR HEMOGLOBIN 28.4 pg (28.0-32.0); MEAN CORPUSCULAR VOLUME 89.7 fL (80.0-94.0); MEAN PLATELET VOLUME 10.9 fl (7.4-10.4); MONOCYTES % 5.6 % (2.0-8.0); PLATELET 81 x1000/uL (130-400); RED BLOOD CELL COUNT 3.48 mill/uL (4.7-6.1); RED CELL DISTRIBUTION WIDTH 21.8 % (11.6-14.6)
[2020-08-16] MEDS: PANTOPRAZOLE SODIUM 40 MG/VIAL IV SCH (09:34)
[2020-08-16] MEDS: CALCITRIOL 1MCG/ML AMP IV SCH (09:34)
[2020-08-16] MEDS: THIAMINE HCL 100MG TABLET PO SCH (09:34)
[2020-08-16] MEDS: LACTULOSE 20G/30ML UDC NG SCH ×2 (09:34→20:30)
[2020-08-16] MEDS: DEXT 5% WATER + KCL 20MEQ/L 1,000 ML IV SCH ×2 (11:44→20:30)
[2020-08-16 12:00] VITALS: BP 93/73
[2020-08-16] MEDS ORDERED: TAMS-11 MT (14:06)
[2020-08-16] MEDS ORDERED: THIA250T3 MT (14:06)
[2020-08-16] MEDS ORDERED: PANT40SU MT (14:06)
[2020-08-16] MEDS ORDERED: METO5TAB86 MT ×2 (14:06)
[2020-08-16] MEDS ORDERED: LACT10SO7 MT (14:06)
[2020-08-16 16:00] VITALS: BP 111/76
[2020-08-16 20:00] VITALS: BP 95/74
[2020-08-16] MEDS: TAMSULOSIN HCL 0.4MG SR CAPSULE PO SCH (20:30)
[2020-08-17] VITALS: BP 116/58
[2020-08-17] MEDS: METOCLOPRAMIDE HCL 10MG/2ML VIAL IV SCH ×4 (01:25→17:40)
[2020-08-17 04:00] VITALS: BP 107/74
[2020-08-17 08:00] VITALS: BP 139/73
[2020-08-17] MEDS ORDERED: CALCIUM GLUCONATE 1GM PREMIX 50 ML IV SCH (09:00)
[2020-08-17] MEDS: PANTOPRAZOLE SODIUM 40 MG/VIAL IV SCH (09:17)
[2020-08-17] MEDS: LACTULOSE 20G/30ML UDC NG SCH ×2 (09:17→21:52)
[2020-08-17] MEDS: CALCITRIOL 1MCG/ML AMP IV SCH (09:17)
[2020-08-17] MEDS: THIAMINE HCL 100MG TABLET PO SCH (09:17)
[2020-08-17 09:49] LABS: CHLORIDE 119 mEq/L (98-107)
[2020-08-17 09:57] LABS: BASOPHILS % 0.4 % (0.0-2.0); EOSINOPHILS % 0.5 % (0.0-5.0); HEMATOCRIT. 35.2 % (42.0-52.0); HEMOGLOBIN. 10.6 g/dL (14.0-18.0); LYMPHOCYTES % 20.3 % (20.0-50.0); MEAN CORPUSCULAR HEMOGLOBIN 28.4 pg (28.0-32.0); MEAN CORPUSCULAR VOLUME 94.3 fL (80.0-94.0); MEAN PLATELET VOLUME 11.3 fl (7.4-10.4); MONOCYTES % 7.2 % (2.0-8.0); NEUTROPHILS % 71.6 % (40.0-76.0); PLATELET 150 x1000/uL (130-400); RED BLOOD CELL COUNT 3.74 mill/uL (4.7-6.1); RED CELL DISTRIBUTION WIDTH 22.9 % (11.6-14.6)
[2020-08-17 09:59] LABS: PHOSPHORUS 1.9 mg/dL (2.5-4.9)
[2020-08-17] MEDS: DEXT 5% WATER + KCL 20MEQ/L 1,000 ML IV SCH (10:34)
[2020-08-17 12:00] VITALS: BP 102/72
[2020-08-17] MEDS ORDERED: POTASSIUM PHOS,M-BASIC-D-BASIC 20 MMOL in DEXT 5% WATER 243.3333 ML IV SCH (14:00)
[2020-08-17 16:00] VITALS: BP 113/73
[2020-08-17 20:00] VITALS: BP 115/75
[2020-08-17] MEDS: TAMSULOSIN HCL 0.4MG SR CAPSULE PO SCH (21:52)
[2020-08-17] MEDS: CALCIUM CARBONATE 500MG TABLET CHEW GT SCH (21:52)
[2020-08-18] VITALS: BP 103/73
[2020-08-18] MEDS: METOCLOPRAMIDE HCL 10MG/2ML VIAL IV SCH ×2 (00:30→05:59)
[2020-08-18 04:00] VITALS: BP 105/79
[2020-08-18 05:37] VITALS: BP 105/79
[2020-08-18 08:34] LABS: BASOPHILS % 0.4 % (0.0-2.0); EOSINOPHILS % 0.3 % (0.0-5.0); HEMATOCRIT. 29.9 % (42.0-52.0); HEMOGLOBIN. 9.2 g/dL (14.0-18.0); MEAN CORPUSCULAR HEMOGLOBIN 28.3 pg (28.0-32.0); MEAN CORPUSCULAR VOLUME 91.8 fL (80.0-94.0); MEAN PLATELET VOLUME 10.6 fl (7.4-10.4); MONOCYTES % 7.1 % (2.0-8.0); NEUTROPHILS % 67.2 % (40.0-76.0); PLATELET 160 x1000/uL (130-400); RED BLOOD CELL COUNT 3.26 mill/uL (4.7-6.1); RED CELL DISTRIBUTION WIDTH 22.9 % (11.6-14.6)
[2020-08-18] MEDS: LACTULOSE 20G/30ML UDC NG SCH (08:38)
[2020-08-18] MEDS: CALCIUM CARBONATE 500MG TABLET CHEW GT SCH (08:38)
[2020-08-18] MEDS: THIAMINE HCL 100MG TABLET PO SCH (08:39)
[2020-08-18] MEDS: PANTOPRAZOLE SODIUM 40 MG/VIAL IV SCH (08:39)
[2020-08-18 08:46] LABS: CHLORIDE 120 mEq/L (98-107)
[2020-08-18 08:53] LABS: PHOSPHORUS 2.9 mg/dL (2.5-4.9)
[2020-08-18] MEDS ORDERED: CHOLECALCIFEROL (D3) 1000 UNIT TABLET PO SCH (09:00)
[2020-08-18] MEDS ORDERED: DEXTROSE 5% WATER 1,000 ML IV SCH (10:00)
[2020-08-18] MEDS ORDERED: MAGNESIUM 2 G PREMIX 50 ML IV SCH (12:00)
[2020-08-18 15:13] VITALS: BP 107/77
== END 2020-08-18 18:15 | DRG 871 ==
LOC: ER 10:19 → 5EST 13:53 → EDBEDREQ 13:59 → ENRESERV 14:47 → 5WST 08-12 01:43
PROVIDERS: ADMIT Family Medicine; ATTEND Family Medicine
PROC: 4A10X4Z Monitoring of Central Nervous Electrical Activity, External Approach (ICD-10-PCS; 2020-08-13)
PROC: 0DH63UZ Insertion of Feeding Device into Stomach, Percutaneous Approach (ICD-10-PCS; principal; 2020-08-15)
PROC: 0DB78ZX Excision of Stomach, Pylorus, Via Natural or Artificial Opening Endoscopic, Diagnostic (ICD-10-PCS; 2020-08-15)
DX: A41.9 Sepsis, unspecified organism (principal); G93.41 Metabolic encephalopathy; N17.0 Acute kidney failure with tubular necrosis; E51.2 Wernicke's encephalopathy; E87.2 Acidosis; K56.7 Ileus, unspecified; E87.0 Hyperosmolality and hypernatremia; K86.1 Other chronic pancreatitis; E72.20 Disorder of urea cycle metabolism, unspecified; E51.9 Thiamine deficiency, unspecified; N13.6 Pyonephrosis; E86.0 Dehydration; F03.90 Unspecified dementia, unspecified severity, without behavioral disturbance, psychotic disturbance, mood disturbance, and anxiety; D64.9 Anemia, unspecified; Z96.642 Presence of left artificial hip joint; N18.9 Chronic kidney disease, unspecified; N40.0 Benign prostatic hyperplasia without lower urinary tract symptoms; K29.70 Gastritis, unspecified, without bleeding; K29.80 Duodenitis without bleeding; I12.9 Hypertensive chronic kidney disease with stage 1 through stage 4 chronic kidney disease, or unspecified chronic kidney disease; G93.89 Other specified disorders of brain; E83.51 Hypocalcemia; E83.39 Other disorders of phosphorus metabolism; Z20.822 Contact with and (suspected) exposure to COVID-19; E87.6 Hypokalemia; F15.90 Other stimulant use, unspecified, uncomplicated; I95.9 Hypotension, unspecified; D69.6 Thrombocytopenia, unspecified; R94.6 Abnormal results of thyroid function studies; E83.42 Hypomagnesemia; K21.9 Gastro-esophageal reflux disease without esophagitis; K74.60 Unspecified cirrhosis of liver; R13.10 Dysphagia, unspecified; S31.010A Laceration without foreign body of lower back and pelvis without penetration into retroperitoneum, initial encounter; X58.XXXA Exposure to other specified factors, initial encounter; Y93.89 Activity, other specified; Y92.89 Other specified places as the place of occurrence of the external cause; Y99.8 Other external cause status; Z82.49 Family history of ischemic heart disease and other diseases of the circulatory system; Z87.440 Personal history of urinary (tract) infections; I69.398 Other sequelae of cerebral infarction; Z96.0 Presence of urogenital implants; Z74.01 Bed confinement status
CPT/HCPCS: 36415; 70551; 71045; 74018; 76770; 80048; 80053; 80061; 80076; 80305; 80307; 80320; 80329; 81003; 82140; 82150; 82247; 82248; 82330; 82550; 82553; 82784; 82962; 83605; 83735; 84100; 84439; 84443; 84484; 84550; 85025; 86334; 87426; 88305; 88312; 88313; 92610; 93005; 95816; 99291; A6261; C9113; J0610; J0636; J0690; J0696; J2250; J2543; J2765; J3010; J3370; J3475; J3480; J3490; J7030; J7040; J7042; J7060; J7070; P9041; P9047; A4315; G0480

== ENCOUNTER 2020-08-28 00:20 | Inpatient (IN) | payer MEDICARE, MEDICAID ==
[~2020-08-28] VITALS: Ht 185.4 cm; Wt 93.0 kg
[~2020-08-28 00:20] MED LIST: CALC-1042 PO; CHOL400D7 MT; LACT10SO7 MT; PANT40SU MT; TAMS-11 MT; THIA250T3 MT
[2020-08-28] MEDS ORDERED: SODIUM CHLORIDE 0.9% 1,000 ML IV ONE (01:00)
[2020-08-28] MEDS ORDERED: VANCOMYCIN 1 G PREMIX 200 ML IV ONE (01:00)
[2020-08-28] MEDS ORDERED: PIPERACILLIN/TAZ 3.375G PREMIX 50 ML IV ONE (01:00)
[2020-08-28] MEDS ORDERED: ONDANSETRON HCL 4MG/2ML INJ IV STA (01:00)
[2020-08-28 01:21] LABS: BASOPHILS % 0.3 % (0.0-2.0); EOSINOPHILS % 0.3 % (0.0-5.0); HEMATOCRIT. 23.8 % (42.0-52.0); HEMOGLOBIN. 7.5 g/dL (14.0-18.0); LYMPHOCYTES % 15.5 % (20.0-50.0); MEAN CORPUSCULAR HEMOGLOBIN 29.1 pg (28.0-32.0); MEAN CORPUSCULAR VOLUME 92.4 fL (80.0-94.0); MEAN PLATELET VOLUME 9.9 fl (7.4-10.4); MONOCYTES % 7.1 % (2.0-8.0); NEUTROPHILS % 76.8 % (40.0-76.0); PLATELET 301 x1000/uL (130-400); RED BLOOD CELL COUNT 2.58 mill/uL (4.7-6.1); RED CELL DISTRIBUTION WIDTH 23.7 % (11.6-14.6)
[2020-08-28 01:29] LABS: CHLORIDE 119 mEq/L (98-107); INR 1.1; PROTHROMBIN TIME 11.5 sec (9.6-11.0)
[2020-08-28 01:44] LABS: CLARITY URINE CLEAR (CLEAR); COLOR URINE YELLOW (YELLOW); KETONES URINE NEGATIVE (NEGATIVE); LEUKOCYTE ESTERASE URINE 2+ (NEGATIVE); NITRITE URINE NEGATIVE (NEGATIVE); OCCULT BLOOD URINE 1+ (NEGATIVE); PH URINE 6.5 (4.5-8.0); PROTEIN URINE 2+ (NEGATIVE); SPECIFIC GRAVITY URINE 1.017 (1.005-1.030)
[2020-08-28 09:00] VITALS: BP 95/73
[2020-08-28 09:41] VITALS: BP 95/73
[2020-08-28] MEDS ORDERED: CEFTRIAXONE 1 G PREMIX 50 ML IV SCH (10:30)
[2020-08-28] MEDS ORDERED: ENOXAPARIN 30MG/0.3ML SYR SUBCUT SCH (11:30)
[2020-08-28 12:00] VITALS: BP 99/62
[2020-08-28] MEDS: AZITHROMYCIN 500 MG in DEXT 5% WATER 250 ML IV SCH (12:04)
[2020-08-28] MEDS ORDERED: CEFTRIAXONE 1,000 MG in DEXTROSE 5% WATER 50 ML IV SCH (13:00)
[2020-08-28 16:00] VITALS: BP 94/62
[2020-08-28 20:00] VITALS: BP 121/87
[2020-08-28] MEDS: CEFEPIME 2,000 MG in DEXT 5% WATER 100 ML IV SCH (21:27)
[2020-08-28] MEDS: ACETAMINOPHEN 650MG/20.3ML UDC GT PRN (22:34)
[2020-08-28] MEDS: SODIUM CHLORIDE 0.45% 1,000 ML IV SCH (22:35)
[2020-08-29] VITALS (9 sets, daily range): BP systolic 91–117; BP diastolic 54–75
[2020-08-29 06:21] LABS: CHLORIDE 120 mEq/L (98-107)
[2020-08-29 06:27] LABS: PHOSPHORUS 2.7 mg/dL (2.5-4.9)
[2020-08-29 06:33] LABS: BASOPHILS % 0.4 % (0.0-2.0); EOSINOPHILS % 0.5 % (0.0-5.0); LYMPHOCYTES % 14.3 % (20.0-50.0); MEAN CORPUSCULAR HEMOGLOBIN 30.2 pg (28.0-32.0); MEAN CORPUSCULAR VOLUME 94.9 fL (80.0-94.0); MEAN PLATELET VOLUME 10.1 fl (7.4-10.4); MONOCYTES % 9.4 % (2.0-8.0); NEUTROPHILS % 75.4 % (40.0-76.0); PLATELET 253 x1000/uL (130-400); RED BLOOD CELL COUNT 2.27 mill/uL (4.7-6.1); RED CELL DISTRIBUTION WIDTH 22.8 % (11.6-14.6)
[2020-08-29 06:49] LABS: HEMOGLOBIN. 6.9 g/dL (14.0-18.0)
[2020-08-29 06:50] LABS: HEMATOCRIT. 21.5 % (42.0-52.0)
[2020-08-29] MEDS ORDERED: DIPHENHYDRAMINE 25MG CAPSULE PO SCH (08:15)
[2020-08-29] MEDS ORDERED: ACETAMINOPHEN 325MG TABLET PO SCH (08:15)
[2020-08-29] MEDS ORDERED: ENOXAPARIN 40MG/0.4ML SYR SUBCUT SCH (09:00)
[2020-08-29] MEDS: SODIUM CHLORIDE 0.45% 1,000 ML IV SCH (10:06)
[2020-08-29] MEDS: CEFEPIME 2,000 MG in DEXT 5% WATER 100 ML IV SCH (10:06)
[2020-08-29] MEDS: THIAMINE HCL 100MG TABLET PO SCH (10:07)
[2020-08-29] MEDS: ENOXAPARIN 40MG/0.4ML SYR SUBCUT SCH (10:07)
[2020-08-29] MEDS: ACETAMINOPHEN 650MG/20.3ML UDC GT PRN (10:08)
[2020-08-29] MEDS: AZITHROMYCIN 500 MG in DEXT 5% WATER 250 ML IV SCH (13:12)
[2020-08-29] MEDS ORDERED: ACETAMINOPHEN 650MG/20.3ML UDC PO SCH (14:00)
[2020-08-29] MEDS: MEROPENEM 1,000 MG in SODIUM CHLORIDE 0.9% 100 ML IV SCH ×2 (14:17→21:26)
[2020-08-29 16:53] LABS: PLATELET ESTIMATE NORMAL
[2020-08-30] VITALS: BP 108/73
[2020-08-30 00:28] LABS: HEMATOCRIT 30.9 % (42.0-52.0); HEMOGLOBIN 9.9 g/dL (14.0-18.0)
[2020-08-30] MEDS: SODIUM CHLORIDE 0.45% 1,000 ML IV SCH ×2 (00:30→18:32)
[2020-08-30] MEDS: IPRATROPIUM/ALBUTEROL 0.5-3(2.5)MG/3ML NEB HHN SCH ×4 (01:05→21:15)
[2020-08-30 04:00] VITALS: BP 94/74
[2020-08-30] MEDS: ACETAMINOPHEN 650MG/20.3ML UDC GT PRN (04:21)
[2020-08-30] MEDS: MEROPENEM 1,000 MG in SODIUM CHLORIDE 0.9% 100 ML IV SCH ×3 (05:34→21:06)
[2020-08-30 06:29] LABS: BASOPHILS % 0.3 % (0.0-2.0); EOSINOPHILS % 0.5 % (0.0-5.0); HEMATOCRIT. 30.5 % (42.0-52.0); HEMOGLOBIN. 9.6 g/dL (14.0-18.0); LYMPHOCYTES % 14.5 % (20.0-50.0); MEAN CORPUSCULAR HEMOGLOBIN 28.9 pg (28.0-32.0); MEAN CORPUSCULAR VOLUME 92.2 fL (80.0-94.0); MEAN PLATELET VOLUME 10.3 fl (7.4-10.4); MONOCYTES % 13.9 % (2.0-8.0); NEUTROPHILS % 70.8 % (40.0-76.0); PLATELET 298 x1000/uL (130-400); RED BLOOD CELL COUNT 3.31 mill/uL (4.7-6.1); RED CELL DISTRIBUTION WIDTH 21.3 % (11.6-14.6)
[2020-08-30 06:42] LABS: CHLORIDE 119 mEq/L (98-107)
[2020-08-30 07:52] VITALS: BP 105/72
[2020-08-30] MEDS: ENOXAPARIN 40MG/0.4ML SYR SUBCUT SCH (10:17)
[2020-08-30] MEDS: THIAMINE HCL 100MG TABLET PO SCH (10:22)
[2020-08-30 11:50] VITALS: BP 107/68
[2020-08-30] MEDS: AZITHROMYCIN 500 MG in DEXT 5% WATER 250 ML IV SCH (14:11)
[2020-08-30 16:12] VITALS: BP 111/79
[2020-08-30 20:24] VITALS: BP 91/70
[2020-08-31 00:18] VITALS: BP 99/62
[2020-08-31] MEDS: ACETAMINOPHEN 650MG/20.3ML UDC GT PRN (00:22)
[2020-08-31] MEDS: IPRATROPIUM/ALBUTEROL 0.5-3(2.5)MG/3ML NEB HHN SCH ×4 (02:07→20:53)
[2020-08-31 04:30] VITALS: BP 96/65
[2020-08-31] MEDS: MEROPENEM 1,000 MG in SODIUM CHLORIDE 0.9% 100 ML IV SCH ×3 (05:05→21:05)
[2020-08-31 07:55] VITALS: BP 115/84
[2020-08-31] MEDS: THIAMINE HCL 100MG TABLET PO SCH (10:03)
[2020-08-31] MEDS: ENOXAPARIN 40MG/0.4ML SYR SUBCUT SCH (10:04)
[2020-08-31 11:41] VITALS: BP 113/84
[2020-08-31] MEDS: AZITHROMYCIN 500 MG in DEXT 5% WATER 250 ML IV SCH (12:46)
[2020-08-31 13:36] LABS: CHLORIDE 119 mEq/L (98-107); HEMATOCRIT. 31.4 % (42.0-52.0); HEMOGLOBIN. 9.8 g/dL (14.0-18.0); MEAN CORPUSCULAR HEMOGLOBIN 29.6 pg (28.0-32.0); MEAN CORPUSCULAR VOLUME 95.1 fL (80.0-94.0); PLATELET 316 x1000/uL (130-400)
[2020-08-31] MEDS ORDERED: VANCOMYCIN 1500MG in DEXTROSE 5% WATER 250ML IV SCH (14:00)
[2020-08-31 16:03] VITALS: BP 118/78
[2020-08-31 20:00] VITALS: BP 113/76
[2020-08-31] MEDS ORDERED: VANCOMYCIN 1 G PREMIX 200 ML IV SCH (22:00)
[2020-09-01] VITALS (7 sets, daily range): BP systolic 105–128; BP diastolic 71–79
[2020-09-01] MEDS: IPRATROPIUM/ALBUTEROL 0.5-3(2.5)MG/3ML NEB HHN SCH ×3 (03:23→13:11)
[2020-09-01 04:27] LABS: PLATELET ESTIMATE NORMAL
[2020-09-01] MEDS: MEROPENEM 1,000 MG in SODIUM CHLORIDE 0.9% 100 ML IV SCH ×2 (05:12→15:35)
[2020-09-01] MEDS: VANCOMYCIN 1 G PREMIX 200 ML IV SCH ×2 (05:52→16:49)
[2020-09-01 07:05] LABS: HEMATOCRIT. 26.8 % (42.0-52.0); HEMOGLOBIN. 8.8 g/dL (14.0-18.0); MEAN CORPUSCULAR HEMOGLOBIN 29.4 pg (28.0-32.0); MEAN CORPUSCULAR VOLUME 89.8 fL (80.0-94.0); MEAN PLATELET VOLUME 9.8 fl (7.4-10.4); PLATELET 346 x1000/uL (130-400); RED BLOOD CELL COUNT 2.99 mill/uL (4.7-6.1); RED CELL DISTRIBUTION WIDTH 20.6 % (11.6-14.6)
[2020-09-01 07:13] LABS: CHLORIDE 117 mEq/L (98-107)
[2020-09-01] MEDS: ENOXAPARIN 40MG/0.4ML SYR SUBCUT SCH (09:09)
[2020-09-01] MEDS: THIAMINE HCL 100MG TABLET PO SCH (09:09)
[2020-09-01] MEDS ORDERED: AZIT500T3 MT (12:59)
[2020-09-01] MEDS ORDERED: FERR236T3 MT (13:03)
[2020-09-01] MEDS ORDERED: FOLI-43 MT (13:03)
[2020-09-01] MEDS: AZITHROMYCIN 500 MG in DEXT 5% WATER 250 ML IV SCH (13:04)
[2020-09-01 16:33] LABS: TOTAL IRON BINDING CAPACITY 127 ug/dL (250-450)
[2020-09-01 17:00] LABS: VITAMIN B12 SERUM 313 pg/mL (211-911)
[2020-09-01 23:06] LABS: PLATELET ESTIMATE NORMAL
== END 2020-09-01 18:10 | DRG 871 ==
LOC: ER 00:20 → 7WST 02:54 → ENRESERV 07:58 → 6WST 08-29 01:25
PROVIDERS: ADMIT Family Medicine; ATTEND Family Medicine
PROC: 30233N1 Transfusion of Nonautologous Red Blood Cells into Peripheral Vein, Percutaneous Approach (ICD-10-PCS; principal; 2020-08-29)
DX: A41.9 Sepsis, unspecified organism (principal); E43 Unspecified severe protein-calorie malnutrition; J96.01 Acute respiratory failure with hypoxia; J69.0 Pneumonitis due to inhalation of food and vomit; G93.41 Metabolic encephalopathy; N39.0 Urinary tract infection, site not specified; E87.1 Hypo-osmolality and hyponatremia; E87.0 Hyperosmolality and hypernatremia; Z20.822 Contact with and (suspected) exposure to COVID-19; D64.9 Anemia, unspecified; N40.1 Benign prostatic hyperplasia with lower urinary tract symptoms; R33.8 Other retention of urine; R13.10 Dysphagia, unspecified; K21.9 Gastro-esophageal reflux disease without esophagitis; L89.626 Pressure-induced deep tissue damage of left heel; L89.616 Pressure-induced deep tissue damage of right heel; L89.516 Pressure-induced deep tissue damage of right ankle; L89.156 Pressure-induced deep tissue damage of sacral region; I12.9 Hypertensive chronic kidney disease with stage 1 through stage 4 chronic kidney disease, or unspecified chronic kidney disease; N18.9 Chronic kidney disease, unspecified; Z86.73 Personal history of transient ischemic attack (TIA), and cerebral infarction without residual deficits; Z74.01 Bed confinement status; Z93.1 Gastrostomy status; Z68.27 Body mass index [BMI] 27.0-27.9, adult; Z79.899 Other long term (current) drug therapy; R47.1 Dysarthria and anarthria
CPT/HCPCS: 36415; 71045; 74018; 80048; 80053; 81003; 82040; 82607; 83540; 83550; 83605; 83735; 84100; 84134; 84145; 84484; 85014; 85018; 85025; 86850; 86900; 86920; 87070; 87077; 87186; 92610; 93005; 93970; 94640; 97162; 99291; J0456; J0692; J0696; J1650; J2185; J2405; J2543; J3370; J7030; J7040; J7050; J7060; P9016; Q0163; U0003

== ENCOUNTER 2021-05-27 11:19 | Inpatient (IN) | payer MEDICARE, MEDICAID ==
[~2021-05-27] VITALS: Ht 180.3 cm; Wt 103.0 kg
[~2021-05-27 11:19] MED LIST changes: +AZIT500T3 MT; +FERR236T3 MT; +FOLI-43 MT
[2021-05-27] MEDS ORDERED: PIPERACILLIN/TAZ 3.375G PREMIX 50 ML IV ONE (11:45)
[2021-05-27] MEDS ORDERED: VANCOMYCIN 1G PREMIX 200 ML IV ONE (11:45)
[2021-05-27] MEDS ORDERED: SODIUM CHLORIDE 0.9% 1000ML BAG (SEPSIS BOLUS) IV ONE (11:45)
[2021-05-27 12:38] LABS: BASOPHILS % 0.3 % (0.0-2.0); EOSINOPHILS % 0.3 % (0.0-5.0); HEMATOCRIT. 30.8 % (42.0-52.0); HEMOGLOBIN. 9.4 g/dL (14.0-18.0); LYMPHOCYTES % 17.5 % (20.0-50.0); MEAN CORPUSCULAR VOLUME 75.2 fL (80.0-94.0); MEAN PLATELET VOLUME 9.2 fl (7.4-10.4); MONOCYTES % 8.1 % (2.0-8.0); NEUTROPHILS % 73.8 % (40.0-76.0); PLATELET 384 x1000/uL (130-400); RED CELL DISTRIBUTION WIDTH 20.4 % (11.6-14.6)
[2021-05-27 12:41] LABS: CHLORIDE 119 mEq/L (98-107)
[2021-05-27 13:04] LABS: INR 1.1; PARTIAL THROMBOPLASTIN TIME 27.7 sec (23.4-31.0); PROTHROMBIN TIME 11.9 sec (9.6-11.0)
[2021-05-27] MEDS ORDERED: LIDOCAINE HCL 1% 20ML VIAL (Pyxis) INJ ONE (13:32)
[2021-05-27 14:55] LABS: CLARITY URINE TURBID (CLEAR); COLOR URINE YELLOW (YELLOW); KETONES URINE NEGATIVE (NEGATIVE); LEUKOCYTE ESTERASE URINE 3+ (NEGATIVE); NITRITE URINE NEGATIVE (NEGATIVE); OCCULT BLOOD URINE NEGATIVE (NEGATIVE); PH URINE 8.5 (4.5-8.0); PROTEIN URINE 3+ (NEGATIVE); SPECIFIC GRAVITY URINE 1.017 (1.005-1.030); UROBILINOGEN URINE 0.2 E.U./dL (0.2-1.0)
[2021-05-27] MEDS ORDERED: SODIUM CHLORIDE 0.9% 1,000 ML IV ONE (15:00)
[2021-05-27] MEDS ORDERED: CLONIDINE 0.1MG TABLET PO PRN (15:30)
[2021-05-27] MEDS ORDERED: IPRATROPIUM/ALBUTEROL 0.5-3(2.5)MG/3ML NEB NEB PRN (15:30)
[2021-05-27] MEDS ORDERED: NITROGLYCERIN 0.4MG TABLET SL SL PRN (15:30)
[2021-05-27] MEDS ORDERED: ONDANSETRON HCL 4MG/2ML INJ IV PRN (15:30)
[2021-05-27] MEDS ORDERED: DOCUSATE SODIUM 100MG CAPSULE PO PRN (15:30)
[2021-05-27] MEDS ORDERED: ZOLPIDEM TARTRATE 5MG TABLET PO PRN (15:30)
[2021-05-27] MEDS ORDERED: MAGNESIUM/ALUMINUM HYDROXIDE/SIMETHICONE 30ML UDC PO PRN (15:30)
[2021-05-27 16:40] LABS: FOLIC ACID (FOLATE) SERUM >20 ng/mL ng/mL (>5.38)
[2021-05-27] MEDS ORDERED: NOREPINEPHRINE 8 MG in DEXT 5% WATER 242 ML IV STA ×2 (16:45→16:51)
[2021-05-27] MEDS: DEXT 5%/0.45% NACL 1000ML 1,000 ML IV SCH (16:51)
[2021-05-27 16:52] LABS: VITAMIN B12 SERUM 1882 pg/mL (211-911)
[2021-05-27] MEDS: ENOXAPARIN 40MG/0.4ML SYR SUBCUT SCH (16:52)
[2021-05-27] MEDS: PIPERACILLIN/TAZ 3.375G PREMIX 50 ML IV SCH (20:18)
[2021-05-27] MEDS: ASCORBIC ACID 500 MG TABLET PO SCH (21:25)
[2021-05-27] MEDS ORDERED: NOREPINEPHRINE 8 MG in DEXT 5% WATER 242 ML IV PRN (21:30)
[2021-05-28] MEDS: DEXT 5%/0.45% NACL 1000ML 1,000 ML IV SCH ×3 (02:06→21:16)
[2021-05-28] MEDS ORDERED: VANCOMYCIN 750 MG in DEXT 5% WATER 250 ML IV SCH (06:00)
[2021-05-28 06:01] LABS: CHLORIDE 125 mEq/L (98-107)
[2021-05-28 06:11] LABS: BASOPHILS % 0.4 % (0.0-2.0); EOSINOPHILS % 0.1 % (0.0-5.0); HEMOGLOBIN. 9.7 g/dL (14.0-18.0); LYMPHOCYTES % 12.8 % (20.0-50.0); MEAN CORPUSCULAR HEMOGLOBIN 24.5 pg (28.0-32.0); MEAN CORPUSCULAR VOLUME 75.8 fL (80.0-94.0); MEAN PLATELET VOLUME 9.2 fl (7.4-10.4); MONOCYTES % 5.2 % (2.0-8.0); NEUTROPHILS % 81.5 % (40.0-76.0); PHOSPHORUS 2.5 mg/dL (2.5-4.9); PLATELET 429 x1000/uL (130-400); RED BLOOD CELL COUNT 3.97 mill/uL (4.7-6.1); RED CELL DISTRIBUTION WIDTH 20.2 % (11.6-14.6)
[2021-05-28] MEDS: PIPERACILLIN/TAZ 3.375G PREMIX 50 ML IV SCH ×3 (06:14→21:16)
[2021-05-28] MEDS: ASCORBIC ACID 500 MG TABLET PO SCH ×2 (09:30→21:16)
[2021-05-28] MEDS: PANTOPRAZOLE SODIUM 40 MG/VIAL IV SCH (09:30)
[2021-05-28] MEDS: ZINC SULFATE 220 MG ( 50 ) CAPSULE PO SCH (09:30)
[2021-05-28] MEDS: CHOLECALCIFEROL (D3) 1000 UNIT TABLET PO SCH (09:30)
[2021-05-28] MEDS: ENOXAPARIN 40MG/0.4ML SYR SUBCUT SCH (16:00)
[2021-05-28] MEDS: NOREPINEPHRINE 8 MG in DEXT 5% WATER 242 ML IV PRN (19:55)
[2021-05-28] MEDS: VANCOMYCIN 750 MG in DEXT 5% WATER 250 ML IV SCH (22:00)
[2021-05-29] VITALS (40 sets, daily range): BP systolic 80–131; BP diastolic 49–94
[2021-05-29] MEDS: PIPERACILLIN/TAZ 3.375G PREMIX 50 ML IV SCH (05:56)
[2021-05-29 06:14] LABS: CHLORIDE 124 mEq/L (98-107)
[2021-05-29] MEDS: DEXT 5%/0.45% NACL 1000ML 1,000 ML IV SCH ×2 (07:30→17:11)
[2021-05-29] MEDS: PANTOPRAZOLE SODIUM 40 MG/VIAL IV SCH (09:00)
[2021-05-29] MEDS: ZINC SULFATE 220 MG ( 50 ) CAPSULE PO SCH (09:00)
[2021-05-29] MEDS: ASCORBIC ACID 500 MG TABLET PO SCH ×2 (09:00→21:54)
[2021-05-29] MEDS: CHOLECALCIFEROL (D3) 1000 UNIT TABLET PO SCH (09:00)
[2021-05-29] MEDS: NOREPINEPHRINE 8 MG in DEXT 5% WATER 242 ML IV PRN (16:00)
[2021-05-29] MEDS ORDERED: FURO40TA5 MT (16:59)
[2021-05-29] MEDS ORDERED: DOXA1TAB2 MT (16:59)
[2021-05-29] MEDS ORDERED: GABA-529 PO (16:59)
[2021-05-29] MEDS: PIPERACILLIN/TAZOBACTAM 3.375G in DEXT 5% WATER 50ML IV SCH ×2 (17:10→22:11)
[2021-05-29] MEDS: VANCOMYCIN 750 MG in DEXT 5% WATER 250 ML IV SCH ×2 (17:10→21:00)
[2021-05-29] MEDS ORDERED: ENOXAPARIN 40MG/0.4ML SYR SUBCUT SCH (18:00)
[2021-05-30] VITALS (89 sets, daily range): BP systolic 85–127; BP diastolic 47–92
[2021-05-30] MEDS: DEXT 5%/0.45% NACL 1000ML 1,000 ML IV SCH ×2 (02:51→13:49)
[2021-05-30] MEDS: NOREPINEPHRINE 8 MG in DEXT 5% WATER 242 ML IV PRN (02:52)
[2021-05-30] MEDS: ACETAMINOPHEN 325MG TABLET PO PRN (02:52)
[2021-05-30] MEDS: VANCOMYCIN 750 MG in DEXT 5% WATER 250 ML IV SCH ×2 (05:56→18:09)
[2021-05-30] MEDS ORDERED: VANCOMYCIN 750MG PREMIX 150 ML IV SCH (06:00)
[2021-05-30] MEDS: PIPERACILLIN/TAZOBACTAM 3.375G in DEXT 5% WATER 50ML IV SCH ×3 (06:06→21:10)
[2021-05-30 06:19] LABS: CHLORIDE 123 mEq/L (98-107)
[2021-05-30 08:13] LABS: HEMATOCRIT. 27.2 % (42.0-52.0); HEMOGLOBIN. 8.6 g/dL (14.0-18.0); MEAN CORPUSCULAR HEMOGLOBIN 23.9 pg (28.0-32.0); MEAN CORPUSCULAR VOLUME 75.6 fL (80.0-94.0); MEAN PLATELET VOLUME 9.2 fl (7.4-10.4); PLATELET 368 x1000/uL (130-400)
[2021-05-30 08:44] LABS: PLATELET ESTIMATE NORMAL
[2021-05-30] MEDS: PANTOPRAZOLE SODIUM 40 MG/VIAL IV SCH (09:20)
[2021-05-30] MEDS: ASCORBIC ACID 500 MG TABLET PO SCH ×2 (09:20→21:09)
[2021-05-30] MEDS: GUAIFENESIN 200MG/10ML SUGAR FREE UDC PO PRN (09:20)
[2021-05-30] MEDS: ZINC SULFATE 220 MG ( 50 ) CAPSULE PO SCH (09:20)
[2021-05-30] MEDS: CHOLECALCIFEROL (D3) 1000 UNIT TABLET PO SCH (09:20)
[2021-05-30] MEDS: IPRATROPIUM/ALBUTEROL 0.5-3(2.5)MG/3ML NEB HHN SCH ×3 (12:13→20:39)
[2021-05-30] MEDS ORDERED: NALOXONE HCL 0.4MG/ML VIAL IV PRN (14:15)
[2021-05-30] MEDS: MORPHINE SULFATE 2 MG/ML CPJ (NOT FOR IM USE) IV PRN (16:48)
[2021-05-30] MEDS: ENOXAPARIN 30MG/0.3ML SYR SUBCUT SCH (21:09)
[2021-05-31] VITALS (88 sets, daily range): BP systolic 86–117; BP diastolic 45–91
[2021-05-31] MEDS: DEXT 5%/0.45% NACL 1000ML 1,000 ML IV SCH ×3 (00:04→19:52)
[2021-05-31] MEDS: IPRATROPIUM/ALBUTEROL 0.5-3(2.5)MG/3ML NEB HHN SCH ×4 (01:28→21:39)
[2021-05-31] MEDS: VANCOMYCIN 750 MG in DEXT 5% WATER 250 ML IV SCH (05:08)
[2021-05-31] MEDS: PIPERACILLIN/TAZOBACTAM 3.375G in DEXT 5% WATER 50ML IV SCH ×3 (05:08→21:01)
[2021-05-31] MEDS: NOREPINEPHRINE 8 MG in DEXT 5% WATER 242 ML IV PRN ×2 (05:40→22:31)
[2021-05-31 06:59] LABS: BASOPHILS % 0.5 % (0.0-2.0); EOSINOPHILS % 1.3 % (0.0-5.0); HEMATOCRIT. 27.5 % (42.0-52.0); HEMOGLOBIN. 8.6 g/dL (14.0-18.0); LYMPHOCYTES % 19.9 % (20.0-50.0); MEAN CORPUSCULAR HEMOGLOBIN 23.8 pg (28.0-32.0); MEAN CORPUSCULAR VOLUME 75.6 fL (80.0-94.0); MEAN PLATELET VOLUME 9.2 fl (7.4-10.4); MONOCYTES % 4.9 % (2.0-8.0); NEUTROPHILS % 73.4 % (40.0-76.0); PLATELET 350 x1000/uL (130-400); RED BLOOD CELL COUNT 3.63 mill/uL (4.7-6.1); RED CELL DISTRIBUTION WIDTH 19.4 % (11.6-14.6)
[2021-05-31 07:08] LABS: CHLORIDE 117 mEq/L (98-107)
[2021-05-31] MEDS: ENOXAPARIN 30MG/0.3ML SYR SUBCUT SCH ×2 (08:46→21:01)
[2021-05-31] MEDS: MIDODRINE HCL 5MG TABLET GT SCH ×2 (08:46→16:05)
[2021-05-31] MEDS: ASCORBIC ACID 500 MG TABLET PO SCH ×2 (08:47→21:01)
[2021-05-31] MEDS: ZINC SULFATE 220 MG ( 50 ) CAPSULE PO SCH (08:47)
[2021-05-31] MEDS: CHOLECALCIFEROL (D3) 1000 UNIT TABLET PO SCH (08:47)
[2021-05-31] MEDS: PANTOPRAZOLE SODIUM 40 MG/VIAL IV SCH (08:47)
[2021-06-01] VITALS (89 sets, daily range): BP systolic 79–150; BP diastolic 31–93
[2021-06-01] MEDS: IPRATROPIUM/ALBUTEROL 0.5-3(2.5)MG/3ML NEB HHN SCH ×4 (01:34→20:51)
[2021-06-01 03:32] LABS: BASOPHILS % 0.4 % (0.0-2.0); EOSINOPHILS % 1.1 % (0.0-5.0); HEMOGLOBIN. 8.6 g/dL (14.0-18.0); MEAN CORPUSCULAR HEMOGLOBIN 23.7 pg (28.0-32.0); MEAN CORPUSCULAR VOLUME 74.8 fL (80.0-94.0); MEAN PLATELET VOLUME 8.6 fl (7.4-10.4); MONOCYTES % 5.2 % (2.0-8.0); NEUTROPHILS % 71.3 % (40.0-76.0); PLATELET 368 x1000/uL (130-400); RED BLOOD CELL COUNT 3.61 mill/uL (4.7-6.1); RED CELL DISTRIBUTION WIDTH 19.7 % (11.6-14.6)
[2021-06-01 03:45] LABS: CHLORIDE 115 mEq/L (98-107)
[2021-06-01] MEDS: PIPERACILLIN/TAZOBACTAM 3.375G in DEXT 5% WATER 50ML IV SCH ×3 (05:39→21:50)
[2021-06-01] MEDS: DEXT 5%/0.45% NACL 1000ML 1,000 ML IV SCH ×2 (05:39→10:05)
[2021-06-01] MEDS: ZINC SULFATE 220 MG ( 50 ) CAPSULE PO SCH (08:20)
[2021-06-01] MEDS: ASCORBIC ACID 500 MG TABLET PO SCH ×2 (08:20→21:49)
[2021-06-01] MEDS: CHOLECALCIFEROL (D3) 1000 UNIT TABLET PO SCH (08:21)
[2021-06-01] MEDS: MIDODRINE HCL 5MG TABLET GT SCH ×2 (08:21→16:02)
[2021-06-01] MEDS: PANTOPRAZOLE SODIUM 40 MG/VIAL IV SCH (08:21)
[2021-06-01] MEDS: ENOXAPARIN 30MG/0.3ML SYR SUBCUT SCH ×2 (08:21→21:50)
[2021-06-01] MEDS: MORPHINE SULFATE 2 MG/ML CPJ (NOT FOR IM USE) IV PRN (13:25)
[2021-06-02] VITALS (68 sets, daily range): BP systolic 88–125; BP diastolic 29–83
[2021-06-02] MEDS: MORPHINE SULFATE 2 MG/ML CPJ (NOT FOR IM USE) IV PRN ×2 (00:33→22:17)
[2021-06-02] MEDS: DEXT 5%/0.45% NACL 1000ML 1,000 ML IV SCH ×3 (01:48→22:03)
[2021-06-02] MEDS: IPRATROPIUM/ALBUTEROL 0.5-3(2.5)MG/3ML NEB HHN SCH ×4 (02:32→20:34)
[2021-06-02] MEDS: CHOLECALCIFEROL (D3) 1000 UNIT TABLET PO SCH (08:12)
[2021-06-02] MEDS: MIDODRINE HCL 5MG TABLET GT SCH ×2 (08:12→17:12)
[2021-06-02] MEDS: PANTOPRAZOLE SODIUM 40 MG/VIAL IV SCH (08:12)
[2021-06-02] MEDS: ASCORBIC ACID 500 MG TABLET PO SCH ×2 (08:13→21:57)
[2021-06-02] MEDS: ENOXAPARIN 30MG/0.3ML SYR SUBCUT SCH (08:13)
[2021-06-02] MEDS: ZINC SULFATE 220 MG ( 50 ) CAPSULE PO SCH (08:13)
[2021-06-02] MEDS: NOREPINEPHRINE 8 MG in DEXT 5% WATER 242 ML IV PRN (09:50)
[2021-06-02] MEDS: PIPERACILLIN/TAZOBACTAM 3.375 G in DEXTROSE 5% WATER 50 ML IV SCH ×2 (14:37→22:04)
[2021-06-03] VITALS (67 sets, daily range): BP systolic 83–133; BP diastolic 51–95
[2021-06-03] MEDS: IPRATROPIUM/ALBUTEROL 0.5-3(2.5)MG/3ML NEB HHN SCH ×4 (00:44→21:25)
[2021-06-03] MEDS: ACETAMINOPHEN 325MG TABLET PO PRN (02:05)
[2021-06-03] MEDS: MORPHINE SULFATE 2 MG/ML CPJ (NOT FOR IM USE) IV PRN (03:57)
[2021-06-03] MEDS: PIPERACILLIN/TAZOBACTAM 3.375 G in DEXTROSE 5% WATER 50 ML IV SCH ×3 (05:28→21:49)
[2021-06-03 06:26] LABS: CHLORIDE 114 mEq/L (98-107)
[2021-06-03 06:32] LABS: PHOSPHORUS 2.9 mg/dL (2.5-4.9)
[2021-06-03 06:41] LABS: BASOPHILS % 0.5 % (0.0-2.0); EOSINOPHILS % 1.6 % (0.0-5.0); HEMATOCRIT. 26.6 % (42.0-52.0); HEMOGLOBIN. 8.4 g/dL (14.0-18.0); LYMPHOCYTES % 27.3 % (20.0-50.0); MEAN CORPUSCULAR HEMOGLOBIN 23.9 pg (28.0-32.0); MEAN CORPUSCULAR VOLUME 75.7 fL (80.0-94.0); MONOCYTES % 7.5 % (2.0-8.0); NEUTROPHILS % 63.1 % (40.0-76.0); PLATELET 382 x1000/uL (130-400); RED BLOOD CELL COUNT 3.51 mill/uL (4.7-6.1); RED CELL DISTRIBUTION WIDTH 19.9 % (11.6-14.6)
[2021-06-03] MEDS: DEXT 5%/0.45% NACL 1000ML 1,000 ML IV SCH (07:17)
[2021-06-03] MEDS: MIDODRINE HCL 5MG TABLET GT SCH ×2 (08:00→16:43)
[2021-06-03] MEDS: PANTOPRAZOLE SODIUM 40 MG/VIAL IV SCH (08:00)
[2021-06-03] MEDS: CHOLECALCIFEROL (D3) 1000 UNIT TABLET PO SCH (08:00)
[2021-06-03] MEDS: ASCORBIC ACID 500 MG TABLET PO SCH ×2 (08:00→21:49)
[2021-06-03] MEDS: ENOXAPARIN 40MG/0.4ML SYR SUBCUT SCH (08:00)
[2021-06-03] MEDS: ZINC SULFATE 220 MG ( 50 ) CAPSULE PO SCH (08:00)
[2021-06-04] VITALS (36 sets, daily range): BP systolic 84–109; BP diastolic 54–81
[2021-06-04] MEDS: IPRATROPIUM/ALBUTEROL 0.5-3(2.5)MG/3ML NEB HHN SCH ×4 (01:34→21:08)
[2021-06-04] MEDS: PIPERACILLIN/TAZOBACTAM 3.375 G in DEXTROSE 5% WATER 50 ML IV SCH ×3 (06:00→21:34)
[2021-06-04] MEDS: ZINC SULFATE 220 MG ( 50 ) CAPSULE PO SCH (10:36)
[2021-06-04] MEDS: MORPHINE SULFATE 2 MG/ML CPJ (NOT FOR IM USE) IV PRN (10:36)
[2021-06-04] MEDS: PANTOPRAZOLE SODIUM 40 MG/VIAL IV SCH (10:36)
[2021-06-04] MEDS: CHOLECALCIFEROL (D3) 1000 UNIT TABLET PO SCH (10:36)
[2021-06-04] MEDS: MIDODRINE HCL 5MG TABLET GT SCH ×2 (10:37→18:55)
[2021-06-04] MEDS: ENOXAPARIN 40MG/0.4ML SYR SUBCUT SCH (10:37)
[2021-06-04] MEDS: ASCORBIC ACID 500 MG TABLET PO SCH ×2 (11:19→21:34)
[2021-06-04] MEDS: ACETAMINOPHEN 325MG TABLET PO PRN (21:34)
[2021-06-05] VITALS (18 sets, daily range): BP systolic 89–121; BP diastolic 58–78
[2021-06-05] MEDS: GUAIFENESIN 200MG/10ML SUGAR FREE UDC PO PRN (01:07)
[2021-06-05] MEDS: IPRATROPIUM/ALBUTEROL 0.5-3(2.5)MG/3ML NEB HHN SCH ×4 (01:13→19:52)
[2021-06-05] MEDS: PIPERACILLIN/TAZOBACTAM 3.375 G in DEXTROSE 5% WATER 50 ML IV SCH ×3 (06:43→21:29)
[2021-06-05 07:06] LABS: BASOPHILS % 0.4 % (0.0-2.0); EOSINOPHILS % 1.6 % (0.0-5.0); HEMATOCRIT. 27.9 % (42.0-52.0); HEMOGLOBIN. 9.1 g/dL (14.0-18.0); LYMPHOCYTES % 25.7 % (20.0-50.0); MEAN CORPUSCULAR HEMOGLOBIN 24.6 pg (28.0-32.0); MEAN CORPUSCULAR VOLUME 75.4 fL (80.0-94.0); MEAN PLATELET VOLUME 9.1 fl (7.4-10.4); MONOCYTES % 7.7 % (2.0-8.0); NEUTROPHILS % 64.6 % (40.0-76.0); PLATELET 434 x1000/uL (130-400); RED BLOOD CELL COUNT 3.69 mill/uL (4.7-6.1); RED CELL DISTRIBUTION WIDTH 20.8 % (11.6-14.6)
[2021-06-05 07:13] LABS: CHLORIDE 110 mEq/L (98-107)
[2021-06-05 07:23] LABS: PHOSPHORUS 2.9 mg/dL (2.5-4.9)
[2021-06-05] MEDS: MIDODRINE HCL 5MG TABLET GT SCH ×2 (08:26→17:00)
[2021-06-05] MEDS: ZINC SULFATE 220 MG ( 50 ) CAPSULE PO SCH (08:26)
[2021-06-05] MEDS: CHOLECALCIFEROL (D3) 1000 UNIT TABLET PO SCH (08:26)
[2021-06-05] MEDS: PANTOPRAZOLE SODIUM 40 MG/VIAL IV SCH (08:26)
[2021-06-05] MEDS: ASCORBIC ACID 500 MG TABLET PO SCH ×2 (08:26→21:29)
[2021-06-05] MEDS: ENOXAPARIN 40MG/0.4ML SYR SUBCUT SCH (08:27)
[2021-06-06] VITALS (12 sets, daily range): BP systolic 90–112; BP diastolic 63–81
[2021-06-06] MEDS: IPRATROPIUM/ALBUTEROL 0.5-3(2.5)MG/3ML NEB HHN SCH ×4 (02:11→21:08)
[2021-06-06] MEDS: PANTOPRAZOLE SODIUM 40 MG/VIAL IV SCH (09:04)
[2021-06-06] MEDS: CHOLECALCIFEROL (D3) 1000 UNIT TABLET PO SCH (09:04)
[2021-06-06] MEDS: ASCORBIC ACID 500 MG TABLET PO SCH ×2 (09:04→21:39)
[2021-06-06] MEDS: MIDODRINE HCL 5MG TABLET GT SCH ×2 (09:04→16:38)
[2021-06-06] MEDS: ZINC SULFATE 220 MG ( 50 ) CAPSULE PO SCH (09:04)
[2021-06-06] MEDS: ENOXAPARIN 40MG/0.4ML SYR SUBCUT SCH (09:05)
[2021-06-06] MEDS: ACETAMINOPHEN 325MG TABLET PO PRN (11:34)
[2021-06-07] VITALS (12 sets, daily range): BP systolic 80–103; BP diastolic 39–72
[2021-06-07] MEDS: IPRATROPIUM/ALBUTEROL 0.5-3(2.5)MG/3ML NEB HHN SCH ×3 (07:44→21:24)
[2021-06-07] MEDS: PANTOPRAZOLE SODIUM 40 MG/VIAL IV SCH (08:30)
[2021-06-07] MEDS: CHOLECALCIFEROL (D3) 1000 UNIT TABLET PO SCH (08:30)
[2021-06-07] MEDS: MIDODRINE HCL 5MG TABLET GT SCH ×2 (08:30→17:19)
[2021-06-07] MEDS: ZINC SULFATE 220 MG ( 50 ) CAPSULE PO SCH (08:31)
[2021-06-07] MEDS: ASCORBIC ACID 500 MG TABLET PO SCH ×2 (08:31→20:56)
[2021-06-07] MEDS: ENOXAPARIN 30MG/0.3ML SYR SUBCUT SCH ×2 (08:39→20:57)
[2021-06-08] VITALS (8 sets, daily range): BP systolic 86–115; BP diastolic 50–76
[2021-06-08] MEDS: ENOXAPARIN 30MG/0.3ML SYR SUBCUT SCH ×2 (08:56→21:01)
[2021-06-08] MEDS: CHOLECALCIFEROL (D3) 1000 UNIT TABLET PO SCH (08:56)
[2021-06-08] MEDS: PANTOPRAZOLE SODIUM 40 MG/VIAL IV SCH (08:56)
[2021-06-08] MEDS: MIDODRINE HCL 5MG TABLET GT SCH ×2 (08:57→16:31)
[2021-06-08] MEDS: ZINC SULFATE 220 MG ( 50 ) CAPSULE PO SCH (08:57)
[2021-06-08] MEDS: ASCORBIC ACID 500 MG TABLET PO SCH ×2 (08:57→21:01)
[2021-06-08] MEDS ORDERED: NALOXONE HCL 0.4MG/ML VIAL IV PRN (09:30)
[2021-06-08] MEDS: IPRATROPIUM/ALBUTEROL 0.5-3(2.5)MG/3ML NEB HHN SCH ×3 (09:36→20:10)
[2021-06-08] MEDS: TRAMADOL 50MG TABLET PO PRN (15:04)
[2021-06-09] VITALS: BP 105/71
[2021-06-09] MEDS: IPRATROPIUM/ALBUTEROL 0.5-3(2.5)MG/3ML NEB HHN SCH ×3 (00:34→14:31)
[2021-06-09 04:00] VITALS: BP 100/76
[2021-06-09 08:00] VITALS: BP 97/69
[2021-06-09] MEDS: ENOXAPARIN 30MG/0.3ML SYR SUBCUT SCH (09:14)
[2021-06-09] MEDS: PANTOPRAZOLE SODIUM 40 MG/VIAL IV SCH (09:14)
[2021-06-09] MEDS: CHOLECALCIFEROL (D3) 1000 UNIT TABLET PO SCH (09:14)
[2021-06-09] MEDS: ZINC SULFATE 220 MG ( 50 ) CAPSULE PO SCH (09:16)
[2021-06-09] MEDS: ASCORBIC ACID 500 MG TABLET PO SCH (09:16)
[2021-06-09] MEDS: MIDODRINE HCL 5MG TABLET GT SCH ×2 (09:16→18:24)
[2021-06-09 12:00] VITALS: BP 102/73
[2021-06-09 16:00] VITALS: BP 105/65
[2021-06-09] MEDS: TRAMADOL 50MG TABLET PO PRN (16:26)
[2021-06-09 16:59] VITALS: BP 102/69
== END 2021-06-09 20:33 | DRG 871 ==
LOC: ER 12:12 → EDBEDREQTM 13:08 → EDBEDREQ 13:08 → EDBEDREQSVC 13:08 → EDBEDREQ 14:02 → EDBEDREQTM 14:02 → SUPCPDRO 15:22 → MICUSO 16:46 → EDBEDREQSVC 17:05 → EDBEDREQ 17:05 → UNDODISIN 05-28 14:41 → EDBEDREQSVC 05-29 07:35 → CVICU 05-29 14:30 → 5EST 06-05 10:56
PROVIDERS: ADMIT Internal Medicine; ATTEND Internal Medicine
PROC: 02HV33Z Insertion of Infusion Device into Superior Vena Cava, Percutaneous Approach (ICD-10-PCS; principal; 2021-05-27)
PROC: B548ZZA Ultrasonography of Superior Vena Cava, Guidance (ICD-10-PCS; 2021-05-27)
DX: A41.9 Sepsis, unspecified organism (principal); L89.154 Pressure ulcer of sacral region, stage 4; G92.8 Other toxic encephalopathy; J18.9 Pneumonia, unspecified organism; R65.21 Severe sepsis with septic shock; E43 Unspecified severe protein-calorie malnutrition; J96.00 Acute respiratory failure, unspecified whether with hypoxia or hypercapnia; L89.893 Pressure ulcer of other site, stage 3; E87.0 Hyperosmolality and hypernatremia; N39.0 Urinary tract infection, site not specified; N13.8 Other obstructive and reflux uropathy; N17.9 Acute kidney failure, unspecified; Z93.1 Gastrostomy status; D63.8 Anemia in other chronic diseases classified elsewhere; E83.51 Hypocalcemia; R13.10 Dysphagia, unspecified; E86.1 Hypovolemia; B96.4 Proteus (mirabilis) (morganii) as the cause of diseases classified elsewhere; N40.1 Benign prostatic hyperplasia with lower urinary tract symptoms; R33.8 Other retention of urine; F03.90 Unspecified dementia, unspecified severity, without behavioral disturbance, psychotic disturbance, mood disturbance, and anxiety; N36.8 Other specified disorders of urethra; S90.31XA Contusion of right foot, initial encounter; X58.XXXA Exposure to other specified factors, initial encounter; I10 Essential (primary) hypertension; Z20.822 Contact with and (suspected) exposure to COVID-19; R79.89 Other specified abnormal findings of blood chemistry; S81.802A Unspecified open wound, left lower leg, initial encounter; S81.801A Unspecified open wound, right lower leg, initial encounter; Z87.01 Personal history of pneumonia (recurrent); Z87.440 Personal history of urinary (tract) infections; I69.320 Aphasia following cerebral infarction; Y93.89 Activity, other specified; Y92.89 Other specified places as the place of occurrence of the external cause; Y99.8 Other external cause status; Z68.31 Body mass index [BMI] 31.0-31.9, adult; B95.2 Enterococcus as the cause of diseases classified elsewhere
CPT/HCPCS: 36415; 71045; 76937; 80048; 80053; 80202; 81003; 82040; 82607; 82746; 82962; 83540; 83550; 83605; 83735; 83880; 84100; 84134; 84145; 84443; 84484; 85025; 87077; 87186; 87426; 93005; 93306; 93970; 94003; 94640; 99291; C1725; C9113; J1650; J2270; J2405; J2543; J3370; J3490; J7030; J7060

== ENCOUNTER 2021-09-15 12:58 | Inpatient (IN) | payer MEDICARE, MEDICAID ==
[~2021-09-15] VITALS: Ht 170.2 cm; Wt 108.9 kg
[~2021-09-15 12:58] MED LIST changes: +DOXA1TAB2 MT; +FURO40TA5 MT; +GABA-529 PO; +LEVO500T89 MT
[2021-09-15] MEDS ORDERED: IPRATROPIUM BROMIDE (0.02%) 0.5MG/2.5ML NEB HHN STA (13:09)
[2021-09-15] MEDS ORDERED: METHYLPREDNISOLONE SOD SUCC 125 MG/2 ML VIAL IV STA (13:09)
[2021-09-15] MEDS ORDERED: ALBUTEROL (0.083%) 2.5MG/3ML NEB HHN SCH (13:30)
[2021-09-15 14:07] LABS: BASOPHILS % 0.4 % (0.0-2.0); EOSINOPHILS % 0.8 % (0.0-5.0); HEMOGLOBIN. 8.2 g/dL (14.0-18.0); LYMPHOCYTES % 38.9 % (20.0-50.0); MEAN CORPUSCULAR HEMOGLOBIN 22.2 pg (28.0-32.0); MEAN CORPUSCULAR VOLUME 70.6 fL (80.0-94.0); MONOCYTES % 9.1 % (2.0-8.0); NEUTROPHILS % 50.8 % (40.0-76.0); PLATELET 644 x1000/uL (130-400); RED BLOOD CELL COUNT 3.68 mill/uL (4.7-6.1); RED CELL DISTRIBUTION WIDTH 22.4 % (11.6-14.6)
[2021-09-15 14:16] LABS: CHLORIDE 103 mEq/L (98-107)
[2021-09-15 14:19] LABS: PLATELET ESTIMATE INCREASED
[2021-09-15] MEDS ORDERED: NITROGLYCERIN 0.4MG TABLET SL SL PRN (17:00)
[2021-09-15] MEDS ORDERED: KETOROLAC 15MG/ML VIAL IV PRN (17:00)
[2021-09-15] MEDS ORDERED: DOCUSATE SODIUM 100MG CAPSULE PO PRN (17:00)
[2021-09-15] MEDS ORDERED: ACETAMINOPHEN 325MG TABLET PO PRN ×2 (17:00)
[2021-09-15] MEDS ORDERED: PIPERACILLIN/TAZ 3.375G PREMIX 50 ML IV NR (17:00)
[2021-09-15] MEDS ORDERED: GUAIFENESIN 200MG/10ML SUGAR FREE UDC PO PRN (17:00)
[2021-09-15] MEDS ORDERED: MAGNESIUM/ALUMINUM HYDROXIDE/SIMETHICONE 30ML UDC PO PRN (17:00)
[2021-09-15] MEDS ORDERED: CLONIDINE 0.1MG TABLET PO PRN (17:00)
[2021-09-15] MEDS ORDERED: ONDANSETRON HCL 4MG/2ML INJ IV PRN (17:00)
[2021-09-15] MEDS ORDERED: ENOXAPARIN 40MG/0.4ML SYR SUBCUT SCH (17:00)
[2021-09-15] MEDS ORDERED: IPRATROPIUM/ALBUTEROL 0.5-3(2.5)MG/3ML NEB NEB PRN (17:00)
[2021-09-15] MEDS ORDERED: NA PHOS,M-B/NA PHOS,DI-BA ENEMA 118ML PR PRN (17:00)
[2021-09-15] MEDS ORDERED: VANCOMYCIN 1G PREMIX 200 ML IV SCH (17:30)
[2021-09-15] MEDS: MIDODRINE HCL 5MG TABLET PO SCH (17:49)
[2021-09-15] MEDS: ENOXAPARIN 30MG/0.3ML SYR SUBCUT SCH (17:50)
[2021-09-15 18:18] LABS: FOLIC ACID (FOLATE) SERUM >20 ng/mL ng/mL (>5.38); VITAMIN B12 SERUM 980 pg/mL (211-911)
[2021-09-15 19:40] VITALS: BP 121/65
[2021-09-15] MEDS ORDERED: ZOLPIDEM TARTRATE 5MG TABLET PO PRN (21:00)
[2021-09-15] MEDS: VANCOMYCIN 1G PREMIX 200 ML IV SCH (22:19)
[2021-09-15] MEDS: ASCORBIC ACID 500 MG TABLET PO SCH (23:10)
[2021-09-15] MEDS: FAMOTIDINE 20MG TABLET PO SCH (23:13)
[2021-09-16] VITALS: BP 103/63
[2021-09-16] MEDS: VANCOMYCIN 1G PREMIX 200 ML IV SCH (00:03)
[2021-09-16 00:40] LABS: CREATINE KINASE 118 IU/L (39-308); CREATINE KINASE MB FRACTION 2.2 ng/mL (0.5-3.6)
[2021-09-16 04:00] VITALS: BP 118/57
[2021-09-16] MEDS: IPRATROPIUM/ALBUTEROL 0.5-3(2.5)MG/3ML NEB HHN SCH ×5 (04:24→20:00)
[2021-09-16] MEDS: PIPERACILLIN/TAZOBACTAM 3.375G in DEXT 5% WATER 50ML IV SCH ×2 (05:20→13:34)
[2021-09-16] MEDS: ENOXAPARIN 30MG/0.3ML SYR SUBCUT SCH ×2 (05:22→16:59)
[2021-09-16 05:38] LABS: BASOPHILS % 0.1 % (0.0-2.0); HEMATOCRIT. 27.1 % (42.0-52.0); HEMOGLOBIN. 8.5 g/dL (14.0-18.0); LYMPHOCYTES % 14.9 % (20.0-50.0); MEAN CORPUSCULAR HEMOGLOBIN 21.9 pg (28.0-32.0); MEAN CORPUSCULAR VOLUME 69.9 fL (80.0-94.0); MEAN PLATELET VOLUME 7.3 fl (7.4-10.4); MONOCYTES % 2.2 % (2.0-8.0); NEUTROPHILS % 82.8 % (40.0-76.0); PLATELET 654 x1000/uL (130-400); RED BLOOD CELL COUNT 3.87 mill/uL (4.7-6.1)
[2021-09-16 06:02] LABS: CHLORIDE 106 mEq/L (98-107)
[2021-09-16 06:10] LABS: CREATINE KINASE 108 IU/L (39-308); CREATINE KINASE MB FRACTION 2.1 ng/mL (0.5-3.6)
[2021-09-16 06:17] LABS: PHOSPHORUS 3.3 mg/dL (2.5-4.9)
[2021-09-16] MEDS: ASCORBIC ACID 500 MG TABLET PO SCH ×2 (10:06→21:45)
[2021-09-16] MEDS: VANCOMYCIN 1.25GM PMX (XELLIA) 250 ML IV SCH (10:06)
[2021-09-16] MEDS: MIDODRINE HCL 5MG TABLET PO SCH ×3 (10:06→16:59)
[2021-09-16] MEDS: ZINC SULFATE 220 MG ( 50 ) CAPSULE PO SCH (10:07)
[2021-09-16] MEDS: CHOLECALCIFEROL (D3) 1000 UNIT TABLET PO SCH (10:07)
[2021-09-16] MEDS: FAMOTIDINE 20MG TABLET PO SCH ×2 (10:08→21:45)
[2021-09-16 12:00] VITALS: BP 90/55
[2021-09-16 16:00] VITALS: BP 92/53
[2021-09-16 20:00] VITALS: BP 90/58
[2021-09-17] VITALS: BP 89/53
[2021-09-17] MEDS: VANCOMYCIN 1.25GM PMX (XELLIA) 250 ML IV SCH (00:28)
[2021-09-17] MEDS: IPRATROPIUM/ALBUTEROL 0.5-3(2.5)MG/3ML NEB HHN SCH ×6 (00:29→21:08)
[2021-09-17] MEDS: PIPERACILLIN/TAZOBACTAM 3.375G in DEXT 5% WATER 50ML IV SCH ×3 (03:02→23:28)
[2021-09-17 04:00] VITALS: BP 81/46
[2021-09-17] MEDS: ENOXAPARIN 30MG/0.3ML SYR SUBCUT SCH ×2 (05:31→18:02)
[2021-09-17 10:04] LABS: CHLORIDE 111 mEq/L (98-107)
[2021-09-17] MEDS: CHOLECALCIFEROL (D3) 1000 UNIT TABLET PO SCH (11:51)
[2021-09-17] MEDS: FAMOTIDINE 20MG TABLET PO SCH ×2 (11:51→23:28)
[2021-09-17] MEDS: ZINC SULFATE 220 MG ( 50 ) CAPSULE PO SCH (11:51)
[2021-09-17] MEDS: ASCORBIC ACID 500 MG TABLET PO SCH ×2 (11:51→23:28)
[2021-09-17] MEDS: MIDODRINE HCL 5MG TABLET PO SCH ×3 (11:55→18:26)
[2021-09-17 12:00] VITALS: BP 96/62
[2021-09-17 16:00] VITALS: BP 106/70
[2021-09-17 20:00] VITALS: BP 107/74
[2021-09-18] VITALS: BP 96/68
[2021-09-18] MEDS: IPRATROPIUM/ALBUTEROL 0.5-3(2.5)MG/3ML NEB HHN SCH ×6 (01:24→21:28)
[2021-09-18 04:00] VITALS: BP 107/74
[2021-09-18] MEDS: VANCOMYCIN 1GM PMX (XELLIA) 200 ML IV SCH ×2 (04:14→21:19)
[2021-09-18] MEDS: PIPERACILLIN/TAZOBACTAM 3.375G in DEXT 5% WATER 50ML IV SCH ×3 (06:41→22:00)
[2021-09-18] MEDS: ENOXAPARIN 30MG/0.3ML SYR SUBCUT SCH ×2 (06:41→18:40)
[2021-09-18 08:00] VITALS: BP 104/67
[2021-09-18] MEDS: ZINC SULFATE 220 MG ( 50 ) CAPSULE PO SCH (08:32)
[2021-09-18] MEDS: FAMOTIDINE 20MG TABLET PO SCH ×2 (08:32→21:21)
[2021-09-18] MEDS: MIDODRINE HCL 5MG TABLET PO SCH ×3 (08:32→17:00)
[2021-09-18] MEDS: ASCORBIC ACID 500 MG TABLET PO SCH ×2 (08:32→21:21)
[2021-09-18] MEDS: CHOLECALCIFEROL (D3) 1000 UNIT TABLET PO SCH (08:32)
[2021-09-18 12:00] VITALS: BP 102/70
[2021-09-18 16:00] VITALS: BP 111/80
[2021-09-18 20:00] VITALS: BP 103/71
[2021-09-18] MEDS: VANCOMYCIN 1.25GM PMX (XELLIA) 250 ML IV SCH (21:18)
[2021-09-19] VITALS: BP 111/72
[2021-09-19] MEDS: IPRATROPIUM/ALBUTEROL 0.5-3(2.5)MG/3ML NEB HHN SCH ×6 (01:43→21:03)
[2021-09-19 04:00] VITALS: BP 104/79
[2021-09-19] MEDS: PIPERACILLIN/TAZOBACTAM 3.375G in DEXT 5% WATER 50ML IV SCH ×2 (05:25→13:14)
[2021-09-19] MEDS: ENOXAPARIN 30MG/0.3ML SYR SUBCUT SCH ×2 (05:25→17:15)
[2021-09-19 08:00] VITALS: BP 105/72
[2021-09-19] MEDS: ASCORBIC ACID 500 MG TABLET PO SCH ×2 (08:32→21:41)
[2021-09-19] MEDS: ZINC SULFATE 220 MG ( 50 ) CAPSULE PO SCH (08:32)
[2021-09-19] MEDS: FAMOTIDINE 20MG TABLET PO SCH ×2 (08:32→21:41)
[2021-09-19] MEDS: CHOLECALCIFEROL (D3) 1000 UNIT TABLET PO SCH (08:32)
[2021-09-19] MEDS: MIDODRINE HCL 5MG TABLET PO SCH ×3 (08:33→17:22)
[2021-09-19 09:37] LABS: CHLORIDE 115 mEq/L (98-107)
[2021-09-19 12:00] VITALS: BP 101/79
[2021-09-19 16:00] VITALS: BP 101/69
[2021-09-19] MEDS ORDERED: VANCOMYCIN 750MG PREMIX 150 ML IV SCH (16:00)
[2021-09-19 20:00] VITALS: BP 109/81
== END 2021-09-19 23:20 | DRG 166 ==
LOC: ER 13:08 → EDBEDREQTM 16:18 → EDBEDREQ 16:18 → ENRESERV 17:23 → 7WST 20:07
PROVIDERS: ADMIT Internal Medicine; ATTEND Internal Medicine
PROC: 0JBP0ZZ Excision of Left Lower Leg Subcutaneous Tissue and Fascia, Open Approach (ICD-10-PCS; principal; 2021-09-17)
PROC: 0JBP0ZZ Excision of Left Lower Leg Subcutaneous Tissue and Fascia, Open Approach (ICD-10-PCS; 2021-09-17)
DX: J96.01 Acute respiratory failure with hypoxia (principal); L89.894 Pressure ulcer of other site, stage 4; L89.154 Pressure ulcer of sacral region, stage 4; E43 Unspecified severe protein-calorie malnutrition; J44.1 Chronic obstructive pulmonary disease with (acute) exacerbation; G93.40 Encephalopathy, unspecified; N13.8 Other obstructive and reflux uropathy; E83.51 Hypocalcemia; R79.89 Other specified abnormal findings of blood chemistry; K21.9 Gastro-esophageal reflux disease without esophagitis; D64.9 Anemia, unspecified; D72.829 Elevated white blood cell count, unspecified; F03.90 Unspecified dementia, unspecified severity, without behavioral disturbance, psychotic disturbance, mood disturbance, and anxiety; N36.8 Other specified disorders of urethra; N40.1 Benign prostatic hyperplasia with lower urinary tract symptoms; Z20.822 Contact with and (suspected) exposure to COVID-19; R13.10 Dysphagia, unspecified; Z86.73 Personal history of transient ischemic attack (TIA), and cerebral infarction without residual deficits; Z68.37 Body mass index [BMI] 37.0-37.9, adult; Z79.899 Other long term (current) drug therapy
CPT/HCPCS: 36415; 71045; 80048; 80053; 80202; 82040; 82550; 82553; 82607; 82746; 83540; 83550; 83605; 83735; 83880; 84100; 84134; 84145; 84443; 84484; 85025; 87426; 93005; 93970; 94640; 99285; C9803; J1650; J2543; J2930; J3370; J7060